=== PATIENT | female | born 1950 | race Caucasian/White ===

== ENCOUNTER 2020-08-08 07:31 | Outpatient (CLI) | payer MEDICARE, SELFPAY ==
[2020-08-08 08:04] LABS: Alanine Aminotransferase 29 U/L (4-35); Alkaline Phosphatase 63 U/L (38-126); Anion Gap 4 mmol/L (8-16); Aspartate Amino Transferase 26 U/L (14-36); Bilirubin,Total 0.4 mg/dL (0.2-1.3); Blood Urea Nitrogen 28 mg/dL (7-17); Calcium 8.9 mg/dL (8.4-10.2); Carbon Dioxide 32 mmol/L (22-30); Chloride 100 mmol/L (98-107); Cholesterol 226 mg/dL (0-200); Estimated Glomerular Filt Rate > 60; Glucose 151 mg/dL (65-105); HDL Direct 67 mg/dL; Potassium 3.9 mmol/L (3.4-5.0); Sodium 136 mmol/L (137-145); Triglycerides 109 mg/dL (<150)
[2020-08-08 08:14] LABS: Hemoglobin A1C 6.2 % (<5.7)
[2020-08-08 08:15] LABS: LDL Cholesterol Direct 132 mg/dL
[2020-08-08 08:24] LABS: Creatinine Urine 164.8 mg/dL
[2020-08-08 08:28] LABS: MALB Creatinine Ratio 19.2 mg/g (0-30); Microalbumin Urine Random 31.6 mg/L (0-16.7)
[2020-08-11 06:31] LABS: Vitamin D 1,25 (OH)2 Total 33 pg/mL (18-72); Vitamin D2 1,25 (OH)2 <8 pg/mL; Vitamin D3 1,25 (OH)2 33 pg/mL
== END 2020-08-08 07:32 | disposition home or self-care (01) ==
PROVIDERS: PCP Emergency Medicine; Visit Provider Emergency Medicine
DX: E11.9 Type 2 diabetes mellitus without complications (principal); E55.9 Vitamin D deficiency, unspecified; E78.5 Hyperlipidemia, unspecified
CPT/HCPCS: 36415; 80053; 80061; 82043; 82652; 83036; 84443

== ENCOUNTER 2020-08-09 07:47 | Outpatient (CLI) | payer MEDICARE, SELFPAY ==
[2020-08-09 08:31] LABS: Hemoglobin A1C 6.2 % (<5.7)
== END 2020-08-09 07:48 | disposition home or self-care (01) ==
PROVIDERS: PCP Emergency Medicine; Visit Provider Emergency Medicine
DX: R73.09 Other abnormal glucose (principal)
CPT/HCPCS: 36415; 83036

== ENCOUNTER 2022-03-24 08:44 | Outpatient (CLI) | payer MEDICARE, SELFPAY ==
[2022-03-24 09:53] LABS: Basophils Percent Auto 0.6 % (0.2-1.2); Eosinophils Absolute Auto 0.2 K/mm3 (0-0.3); Eosinophils Percent Auto 2.5 % (0-4.4); Hematocrit 38.5 % (37.0-47.0); Hemoglobin 12.5 g/dL (12.0-15.0); Immature Granulocyte Absolute 0.01 K/mm3 (0.00-0.031); Immature Granulocyte Percent A 0.2 % (0-0.5); Lymphocytes Absolute Auto 1.61 K/mm3 (0.9-3.2); Lymphocytes Percent Auto 25.6 % (18.3-44.2); Mean Corpuscular HGB Conc 32.5 g/dl (32-36); Mean Corpuscular Hemoglobin 26.8 pg (26-34); Mean Corpuscular Volume 82.4 fl (80-100); Mean Platelet Volume 10.4 fl (7.4-10.4); Monocytes Absolute Auto 0.8 K/mm3 (0.1-0.6); Monocytes Percent Auto 13.3 % (2.6-8.5); Neutrophils Absolute Auto 3.6 K/mm3 (1.3-6.7); Neutrophils Percent Auto 57.8 % (45.5-73.1); Platelet Count Result 248 k/mm3 (150-375); Red Blood Count 4.67 M/mm3 (4.2-5.4); Red Cell Distribution Width 14.4 % (11.5-14.5); White Blood Count 6.3 K/mm3 (4.5-10.0)
[2022-03-24 10:11] LABS: Hemoglobin A1C 13.9 % (<5.7)
[2022-03-24 10:37] LABS: Creatinine Urine 85.8 mg/dL
[2022-03-24 10:42] LABS: MALB Creatinine Ratio 35.5 mg/g (0-30); Microalbumin Urine Random 30.5 mg/L (0-16.7)
[2022-03-24 10:45] LABS: Alanine Aminotransferase 42 U/L (6-35); Albumin Level 3.8 g/dL (3.5-5.1); Alkaline Phosphatase 78 U/L (38-126); Anion Gap 8 mmol/L (8-16); Aspartate Amino Transferase 28 U/L (14-36); Bilirubin,Total 0.4 mg/dL (0.2-1.3); Blood Urea Nitrogen 23 mg/dL (7-17); Calcium 8.9 mg/dL (8.4-10.2); Carbon Dioxide 27 mmol/L (22-30); Chloride 100 mmol/L (98-107); Cholesterol 214 mg/dL (0-200); Estimated Glomerular Filt Rate > 60; Glucose 384 mg/dL (65-110); HDL Direct 47 mg/dL; Potassium 4.1 mmol/L (3.4-5.0); Sodium 135 mmol/L (137-145); Triglycerides 187 mg/dL (<150)
[2022-03-24 10:56] LABS: LDL Cholesterol Direct 127 mg/dL
[2022-03-24 11:52] LABS: Folic Acid 7.7 ng/mL (2.76->20)
[2022-03-27 12:50] LABS: Insulin Level Total 10.4 uIU/mL (<=19.6)
== END 2022-03-24 08:45 | disposition home or self-care (01) ==
PROVIDERS: PCP Emergency Medicine
DX: F33.1 Major depressive disorder, recurrent, moderate (principal); E78.5 Hyperlipidemia, unspecified; I10 Essential (primary) hypertension; E11.9 Type 2 diabetes mellitus without complications
CPT/HCPCS: 36415; 80053; 80061; 82043; 82607; 82746; 83036; 83525; 84443; 85025

== ENCOUNTER 2022-04-18 15:20 | Emergency (ER) | payer MEDICARE, SELFPAY ==
--- NOTE | ~2022-04-18 | XR_ITS ---
EXAMINATION: XR wrist LT min 3V DATE: 04/18/2022 16:17 INDICATION: Left wrist injury and pain. TECHNIQUE: 4 views of left wrist were obtained. COMPARISON: None. FINDINGS: Bone alignment is normal. No fracture. There is mild osteoarthritis of first carpometacarpa l joint and some of the metacarpophalangeal joints. IMPRESSION: 1. Mild polyarticular osteoarthritis. Reviewed, dictated and finalized at location A.
--- NOTE | ~2022-04-18 | CT_ITS ---
EXAMINATION: CT facial & cervical spine wo DATE: 04/18/2022 16:23 INDICATION: Fall. TECHNIQUE: Computed tomography (CT) of the maxillofacial region and cervical spine was performed with out intravenous contrast. Automated exposure control and iterative reconstruction technique were empl oyed. The dose-length product was 499.29 mGy-cm. COMPARISON: None FINDINGS: MAXILLOFACIAL CT: There is leftward deviation of the nasal septum. No fracture. There is mild mucosal thickening in lef t maxillary sinus. There are likely changes of ocular lens replacement surgeries. CERVICAL SPINE CT: There is 2 mm anterolisthesis of C7 on T1. There is 9 degrees levocurvature of cervical spine. Verteb ral body heights are normal. There is mildly decreased disc height at C3-C4, severely decreased disc height at C6-C7, and mildly decreased disc height at C7-T1. The following disc levels are specificall y discussed: C2-C3: There is no uncovertebral joint osteoarthritis. There is mild right facet joint osteoarthritis . There is no neural foraminal stenosis. There is no central canal stenosis. C3-C4: There is mild bilateral uncovertebral joint osteoarthritis. There is mild bilateral facet join t osteoarthritis. There is no neural foraminal stenosis. There is no central canal stenosis. C4-C5: There is mild bilateral uncovertebral joint osteoarthritis. There is mild bilateral facet join t osteoarthritis. There is no neural foraminal stenosis. There is no central canal stenosis. C5-C6: There is no uncovertebral joint osteoarthritis. There is no facet joint osteoarthritis. There is no neural foraminal stenosis. There is no central canal stenosis. C6-C7: There is severe bilateral uncovertebral joint osteoarthritis. There is mild bilateral facet rola int osteoarthritis. There is mild bilateral neural foraminal stenosis. There is mild central canal st enosis. C7-T1: There is no uncovertebral joint osteoarthritis. There is severe right and moderate left facet joint osteoarthritis. There is mild bilateral neural foraminal stenosis. There is no central canal st enosis. IMPRESSION: 1. No fracture. 2. Severe cervical spondylosis. Reviewed, dictated and finalized at location A.
--- NOTE | ~2022-04-18 | XR_ITS ---
EXAMINATION: XR shoulder LT min 2V DATE: 04/18/2022 16:17 INDICATION: Left shoulder pain. Fall. TECHNIQUE: 4 views of left shoulder were obtained. COMPARISON: None. FINDINGS: Bone alignment is normal. No fracture. There is mild osteoarthritis of glenohumeral joint a nd acromioclavicular joint. IMPRESSION: 1. Mild polyarticular osteoarthritis. Reviewed, dictated and finalized at location A.
--- NOTE | ~2022-04-18 | CT_ITS ---
EXAMINATION: CT brain wo con DATE: 04/18/2022 16:19 INDICATION: Fall. TECHNIQUE: Computed tomography (CT) of the head was performed without intravenous contrast. The mA wa s adjusted according to patient size. Iterative reconstruction technique was employed. The dose-lengt h product was 605.33 mGy-cm. COMPARISON: None FINDINGS: There are scattered areas of low attenuation in the cerebral white matter, which is within normal limits for the patient's age. There is no intracranial hemorrhage, acute infarction, or abnorm al intracranial mass lesion. The ventricles are normal in size. There are likely changes of ocular le ns replacement surgeries. There is mild mucosal thickening in the ethmoid sinuses. The mastoid air ce lls are normal. IMPRESSION: 1. Normal aging brain. Reviewed, dictated and finalized at location A. IMPRESSION: 1. Normal aging brain.
--- NOTE | ~2022-04-18 | XR_ITS ---
EXAMINATION: XR wrist RT min 3V DATE: 04/18/2022 16:18 INDICATION: Right wrist pain. Fall. TECHNIQUE: 4 views of right wrist were obtained. COMPARISON: None. FINDINGS: Bone alignment is normal. No fracture. Joint spaces are well maintained. IMPRESSION: 1. No fracture. Reviewed, dictated and finalized at location A. IMPRESSION: 1. No fracture.
--- NOTE | ~2022-04-18 | XR_ITS ---
EXAMINATION: XR hand LT min 3V DATE: 04/18/2022 16:16 INDICATION: Left hand pain. Fall. TECHNIQUE: 4 views of left hand were obtained. COMPARISON: None. FINDINGS: Bone alignment is normal. No fracture. There is mild osteoarthritis of first carpometacarpa l joint, second and fifth metacarpophalangeal joints, and some of the interphalangeal joints. There i s a periarticular calcification palmar to fifth distal interphalangeal joint. IMPRESSION: 1. Mild polyarticular osteoarthritis. Reviewed, dictated and finalized at location A.
[2022-04-18 15:25] VITALS: BP 138/72; PULSE 93; RESP 16; TEMP 36.1; O2SAT 99
--- NOTE | 2022-04-18 16:49 | ED.FALL ---
HPI - Fall General Chief Complaint: Fall Stated Complaint: FALL X1D ON BABY ASPIRIN HEADACHE Time Seen by Provider: 04/18/22 15:33 Source: RN notes reviewed History of Present Illness HPI Narrative: Patient presents emergency department from home for fall. Patient states yesterday she had tripped and fallen striking her forehead and face as well as landing with both of her wrist outstretched she states since that time she has a mild tenderness to her nose as well as her forehead states she did not have loss of consciousness that she is aware of but did feel dazed she also notes pain in her bilateral wrist and her left hand and her left shoulder she denies any vision changes any chest pain shortness of breath abdominal pain numbness or tingling in the extremities or any other symptoms of concern. States she did take ibuprofen at home for the symptoms Related Data Home Medications Medication Instructions Recorded Confirmed aspirin 81 mg chewable tablet 81 mg PO DAILY 05/23/20 05/10/21 Allergies Allergy/AdvReac Type Severity Reaction Status Date / Time [place] Allergy Severe DIFFICULTY Uncoded 04/16/22 09:27 BREATHING AEROSOLS Allergy Intermediate SHORTNESS Uncoded 04/16/22 09:27 OF BREATH Review of Systems Review of Systems: Gen.: Denies fevers or chills Eyes: Denies eye pain or visual change EN reports facial tenderness Respiratory: Denies shortness of breath or cough CV: Denies chest pain or palpitations GI: Denies abdominal pain nausea, emesis Musculoskeletal: See HPI Neuro: Denies numbness, tingling, weakness or focal weakness Skin: Denies rash Except as documented, all other systems reviewed and negative [facility] Past Medical History Medical History Arthritis Asthma Bilateral tinnitus Bleeding gums Bronchitis Cataracts, both eyes Chicken pox Diabetes 1.5, managed as type 2 Dizziness GERD with apnea Hay fever History of sinus problem HTN (hypertension) Incontinence Insomnia Migraine headache Morbid obesity Mumps Nervousness Pneumonia Surgical History Surgical History Hx of cataract removal with insertion of prosthetic lens (~2015) Family History Family History Mother Depression Hypertension Cerebrovascular accident, Onset Age: 64 Family history of diabetes mellitus in first degree relative Patient's mother is Father Family history of alcoholism Family history of emphysema, Onset Age: 49 Patient's father is Sibling Family history of lung cancer Patient's sister is Social History Social History Social History: Patient drinks 14 ounces of coffee daily. No other caffeine intake noted. Smoking status: Never smoker Alcohol intake: current Substance use: never Gender identity (if verbalized by the patient): Female Exam Narrative: APPEARANCE: Well appearing, no apparent distress, well-nourished. HEENT: normocephalic tender palpation over the anterior forehead as well as tenderness over the nasal bridge with mild abrasion and swelling nares are patent with no ecchymosis seen remainder the face is nontender to palpation EYES: PERRL NECK: Supple. No midline tenderness to palpation. Tender palpation of bilateral perigee muscles through C5-7 and RESPIRATORY: No respiratory distress. Clear to auscultation bilaterally CARDIOVASCULAR: Regular rate and rhythm without murmurs rubs or gallops. ABDOMINAL: Soft, nontender, nondistended, no rebound or guarding MUSCULOSKELETAl: Moves all extremities. No tenderness to palpation of bilateral lower extremities. No clubbing cyanosis or edema tender to palpation over the right wrist full flexion-extension without pain no tenderness of the right elbow or shoulde
== END 2022-04-18 17:17 | disposition home or self-care (01) ==
PROVIDERS: Emergency Provider Emergency Medicine; PCP Emergency Medicine
DX: S16.1XXA Strain of muscle, fascia and tendon at neck level, initial encounter (principal); S46.912A Strain of unspecified muscle, fascia and tendon at shoulder and upper arm level, left arm, initial encounter; S63.501A Unspecified sprain of right wrist, initial encounter; S60.222A Contusion of left hand, initial encounter; S00.83XA Contusion of other part of head, initial encounter; J45.909 Unspecified asthma, uncomplicated; E13.9 Other specified diabetes mellitus without complications; I10 Essential (primary) hypertension; K21.9 Gastro-esophageal reflux disease without esophagitis; M18.9 Osteoarthritis of first carpometacarpal joint, unspecified; M19.042 Primary osteoarthritis, left hand; M19.012 Primary osteoarthritis, left shoulder; E66.01 Morbid (severe) obesity due to excess calories; Z68.39 Body mass index [BMI] 39.0-39.9, adult; Z87.01 Personal history of pneumonia (recurrent); Z98.49 Cataract extraction status, unspecified eye; Z96.1 Presence of intraocular lens; Z79.82 Long term (current) use of aspirin; Z79.84 Long term (current) use of oral hypoglycemic drugs; M47.812 Spondylosis without myelopathy or radiculopathy, cervical region; W01.0XXA Fall on same level from slipping, tripping and stumbling without subsequent striking against object, initial encounter
CPT/HCPCS: 70450; 70486; 72125; 73030; 73110; 73130; 99284

== ENCOUNTER 2022-10-08 10:11 | Outpatient (CLI) | payer MEDICARE, SELFPAY ==
--- NOTE | ~2022-10-08 | MM_ITS ---
EXAMINATION: MM screening shade BI w yonathan HISTORY: Screening TECHNIQUE: Craniocaudal and mediolateral oblique 3-D tomosynthesis images were obtained and synthetic 2-D images were generated. CAD analysis was submitted and interpreted. COMPARISON: No prior mammogram is available for comparison at this institution. BREAST PARENCHYMAL COMPOSITION: There are scattered areas of fibroglandular density. FINDINGS: There is a mass in the lower outer quadrant of the right breast, middle third. There is a c luster of indeterminate calcifications in the upper outer quadrant of the left breast, middle third. IMPRESSION: 1. Right breast mass. Indeterminate clustered left breast calcifications. 2. Additional mammographic views and possible breast ultrasound are recommended. BI-RADS Category 0: Incomplete: Needs additional imaging evaluation. Reviewed, dictated and finalized at location A. IMPRESSION: 1. Right breast mass. Indeterminate clustered left breast calcifications. 2. Additional mammographic views and possible breast ultrasound are recommended . BI-RADS Category 0: Incomplete: Needs additional imaging evaluation.
--- NOTE | ~2022-10-08 | DEXA_ITS ---
Bone Density Report Name: BELKYS MOORE Age: 71 Sex: Female Ethnicity: White Date of : 1950 Indication: postmenopausal; screening for osteoporosis; height loss; asthma or emphysema; Referring Provider: VERONICA ANDERSEN Study: Bone densitometry was performed. Exam Date: October 08, 2022 Accession number: [id number] Bone Density: Region BMD T-score Z-score Classification AP Spine(L1-L4) 1.050 0.0 2.2 Normal Femoral Neck (Left) 0.722 -1.1 0.8 Osteopenia Total Hip (Left) 0.944 0.0 1.6 Normal Femoral Neck (Right) 0.757 -0.8 1.1 Normal Total Hip (Right) 1.027 0.7 2.3 Normal Total Hip Mean 0.985 0.4 2.0 Normal World Health Organization criteria for BMD impression classify patients as: Normal (T-score at or above -1.0), Osteopenia (T-score between -1.0 and -2.5), or Osteoporosis (T-score at or below -2.5). 10-year Fracture Risk(1): Major Osteoporotic Fracture 8.2% Hip Fracture 0.9% Reported Risk Factors: [place] (), Neck BMD=0.722, BMI=42.1 (1) FRAX(R) Version 3.08. Fracture probability calculated for an untreated patient. Fracture probability may be lower if the patient has received treatment. Clinical Information Provided by Patient: Has the following medical conditions: Asthma or Emphysema Patient maximum height was 66.75 Menopause Age: 48 No regular weight bearing exercise Drinks caffeinated beverages Onset of menses at age 12 Number of children 4 Impression: The patient has low bone mass, based on the Left Femoral Neck T-score. The patient has an estimated ten-year risk of hip fracture of 0.9% and an estimated ten-year risk of major fracture of 8.2%, based on the WHO FRAX algorithm. Discussion: BONE DENSITY IS LOW AT ONE OR MORE SKELETAL SITES. This patient's lowest T-score is low at one or more skeletal sites. It meets the World Health Organization's (WHO) criteria for ?low bone mass? (T-score between -1.0 and -2.5). The patient's 10-year risk of fracture as calculated by FRAX is less than the threshold where pharmacological therapy is recommended by the National Osteoporosis Foundation (NOF). However, all treatment decisions require clinical judgment and consideration of individual patient factors, including patient preferences, comorbidities, previous drug use, risk factors not captured in the FRAX model (e.g., frailty, falls, vitamin D deficiency, increased bone turnover, interval significant decline in bone density) and possible under or overestimation of fracture risk by FRAX. The patient should follow a healthful lifestyle (good nutrition with adequate calcium and vitamin D, and appropriate weight-bearing exercise). Follow-Up: Consider repeating this study in 2 to 3 years to reassess this patient's status, or sooner if there is some new clinical ind
== END 2022-10-08 10:12 | disposition home or self-care (01) ==
LOC: ANHIMG 10:14
PROVIDERS: PCP Emergency Medicine; Visit Provider Emergency Medicine
DX: Z12.31 Encounter for screening mammogram for malignant neoplasm of breast (principal); Z78.0 Asymptomatic menopausal state; R92.8 Other abnormal and inconclusive findings on diagnostic imaging of breast; M85.852 Other specified disorders of bone density and structure, left thigh
CPT/HCPCS: 77063; 77067; 77080

== ENCOUNTER 2022-10-09 08:48 | Outpatient (CLI) | payer MEDICARE, SELFPAY ==
[2022-10-09 09:26] LABS: Hemoglobin A1C 6.8 % (<5.7)
[2022-10-09 09:31] LABS: Alanine Aminotransferase 21 U/L (6-35); Albumin Level 4.2 g/dL (3.5-5.1); Alkaline Phosphatase 69 U/L (38-126); Anion Gap 8 mmol/L (8-16); Aspartate Amino Transferase 19 U/L (14-36); Bilirubin,Total 0.4 mg/dL (0.2-1.3); Blood Urea Nitrogen 23 mg/dL (7-17); Calcium 8.5 mg/dL (8.4-10.2); Carbon Dioxide 28 mmol/L (22-30); Chloride 102 mmol/L (98-107); Cholesterol 220 mg/dL (0-200); Estimated Glomerular Filt Rate > 60; Glucose 136 mg/dL (65-110); HDL Direct 59 mg/dL; Potassium 4.2 mmol/L (3.4-5.0); Sodium 138 mmol/L (137-145); Triglycerides 128 mg/dL (<150)
[2022-10-09 09:42] LABS: LDL Cholesterol Direct 121 mg/dL
[2022-10-09 10:14] LABS: Creatinine Urine 99.1 mg/dL
[2022-10-09 10:17] LABS: MALB Creatinine Ratio 19.7 mg/g (0-30); Microalbumin Urine Random 19.5 mg/L (0-16.7)
== END 2022-10-09 08:49 | disposition home or self-care (01) ==
PROVIDERS: PCP Emergency Medicine; Visit Provider Emergency Medicine
DX: E13.9 Other specified diabetes mellitus without complications (principal); I10 Essential (primary) hypertension; K21.9 Gastro-esophageal reflux disease without esophagitis; R06.81 Apnea, not elsewhere classified
CPT/HCPCS: 36415; 80053; 80061; 82043; 83036

== ENCOUNTER 2022-10-26 13:31 | Outpatient (CLI) | payer MEDICARE, SELFPAY ==
--- NOTE | ~2022-10-26 | MMUS_ITS ---
EXAMINATION: MM diagnostic shade BI w yonathan, US breast BI limited HISTORY: Right breast mass and indeterminate grouped left breast microcalcifications on 10/08/2022 scr eening mammogram examination TECHNIQUE: Additional 3-D tomosynthesis images of both breasts were performed and synthetic 2-D image s were generated. CAD analysis was submitted and interpreted. Magnification views of the left breast. High resolution right lower outer quadrant and left upper inner and upper outer quadrant breast ultr asound was performed. COMPARISON: 10/08/2022 bilateral screening mammogram FINDINGS: MAMMOGRAPHIC FINDINGS: An irregular up to approximately 7.8 x 13 mm mass is noted in the lower outer quadrant of the right b reast. Ultrasound correlation was obtained. There is approximately 1.7 x 3.7 x 2.5 cm area of calcifications in the upper outer left breast. The se are of variable size and shape, some in the central portion having a granular appearance while ashish e others. The benign secretory calcifications. Due to the presence of some indeterminate granular angelica rocalcifications in this cluster, stereotactic biopsy is recommended. ULTRASOUND: Right breast 8:00 6 cm from nipple: There is an irregular hypoechoic approximately 5.7 x 11 mm mass w ith suggestion of a tail-like projection mammographically and sonographically. There is some posterio r shadowing. No internal vascularity is noted. Due to the irregular margins and the posterior shadowi ng, ultrasound-guided biopsy is recommended. Ultrasound imaging of the upper half of the left breast including upper inner and upper inner quadran ts reveals no sonographic abnormality to correlate with the microcalcifications noted mammographicall y. IMPRESSION: 1. Right 8:00 6 cm from nipple irregular mass with posterior shadowing; ultrasound-guided biopsy is r ecommended 2. Indeterminate cluster of microcalcifications in the upper mid outer left breast; stereotactic biop sy is recommended BI-RADS category 4, suspicious findings. Dr. Rey telephoned the report and the ultrasound-guided biopsy recommendation of the right breast 8: 00 lesion and stereotactic biopsy recommendation of the left breast to Samantha, Cardroom Worker. Reviewed, dictated and finalized at location A. IMPRESSION: 1. Right 8:00 6 cm from nipple irregular mass with posterior shadowing; ultraso und-guided biopsy is recommended 2. Indeterminate cluster of microcalcifications in the upper mid outer left kalyan ast; stereotactic biopsy is recommended BI-RADS category 4, suspicious findings. Dr. Rey telephoned the report and the ultrasound-guided biopsy recommendation of the right breast 8:00 lesion and stereotactic biopsy recommendation of the l eft breast to Danielle Singh.
== END 2022-10-26 13:32 | disposition home or self-care (01) ==
LOC: ANHIMG 13:33
PROVIDERS: PCP Emergency Medicine; Visit Provider Emergency Medicine
DX: R92.8 Other abnormal and inconclusive findings on diagnostic imaging of breast (principal); R92.0 Mammographic microcalcification found on diagnostic imaging of breast
CPT/HCPCS: 76642; 77062; 77066; G0279

== ENCOUNTER 2022-11-20 09:56 | Outpatient (CLI) | payer MEDICARE, SELFPAY ==
--- NOTE | ~2022-11-20 | MM_ITS ---
EXAMINATION: MM stereotactic bx LT, MM post biopsy diagnostic LT, MM stereotactic specimen LT DATE: 11/20/2022 11:34 (accession [id number]), 11/20/2022 11:35 (accession [id number]), 11/20 11:34 (accession [id number]) INDICATION: Indeterminate calcifications of the left breast. Stereotactic core biopsy is requested ev aluate for malignancy. TECHNIQUE AND FINDINGS: The risks and potential benefits of the procedure were discussed with the patient including bleeding and infection. A time out was performed to verify the patient's name, date of and site of proce dure to be performed. The patient was placed in the prone position with the left breast in lateral me dial compression, and the area of interest was localized and targeted utilizing digital imaging with stereotaxis. After sterile preparation of the skin, 1% lidocaine was utilized for local anesthesia at the skin pun cture site and 1% lidocaine with epinephrine was utilized for deeper local anesthesia about the biops y site. A 9G DeciZium vacuum assisted biopsy needle was advanced to the level of the calcification of in terest from a lateral approach utilizing stereotactic guidance and a total of eight tissue core biops ies were obtained. A specimen radiograph demonstrates that the calcifications of interest are included within the tissue cores. A tissue marker clip was then placed at the biopsy site. The needle was removed and hemosta sis was achieved. A sterile bandage in place that were applied. The patient tolerated procedure well and there was no evidence of immediate complication. The patient was given verbal instructions to ret urn to the Emergency Department in the event of severe breast pain or rapid breast enlargement. Tissu e cores were submitted to surgical pathology for histologic analysis. A 2-view left unilateral digital mammogram was obtained post procedure and this demonstrates that the tissue marker clip is in expected position. IMPRESSION: 1. Successful stereotactic biopsy of calcifications in the outer left breast, followed by tissue yanira er clip placement. Reviewed, dictated and finalized at location A. IMPRESSION: 1. Successful stereotactic biopsy of calcifications in the outer left breast, f ollowed by tissue marker clip placement. IMPRESSION: 1. Successful stereotactic biopsy of calcifications in the outer left breast, f ollowed by tissue marker clip placement.
--- NOTE | ~2022-11-20 | MMUS_ITS ---
EXAMINATION: US breast biopsy RT w image, MM post biopsy invasive RT DATE: 11/20/2022 13:36 (accession [id number]), 11/20/2022 13:04 (accession [id number]) INDICATION: Indeterminate mass of the lower outer right breast. Ultrasound-guided core biopsy is requ ested to evaluate for malignancy. TECHNIQUE AND FINDINGS: The risks and potential benefits of the procedure were discussed with the patient including bleeding and infection. A time out was performed. The skin of the right breast was prepared and draped in usua l sterile fashion. 1% lidocaine was used for superficial anesthesia. 1% lidocaine with epinephrine wa s used for deep anesthesia. A vacuum-assisted biopsy needle was advanced through to the outer edge of the region of interest from an inferomedial approach utilizing sonographic guidance. A total of four tissue core samples were ob tained through the lesion. A tissue marker clip was then placed at the biopsy site. Hemostasis was ac hieved. A sterile bandage was applied. The patient tolerated procedure well and there was no evidence of immediate complication. The patient was given verbal instructions to return to the Emergency Department in the event of severe breast pa in or rapid breast enlargement. A two view right breast mammogram was obtained to document tissue mar ker clip placement. IMPRESSION: 1. Successful ultrasound-guided vacuum-assisted biopsy of right breast mass with tissue marker placem ent. Reviewed, dictated and finalized at location A. IMPRESSION: 1. Successful ultrasound-guided vacuum-assisted biopsy of right breast mass wit h tissue marker placement.
== END 2022-11-20 09:57 | disposition home or self-care (01) ==
PROVIDERS: PCP Emergency Medicine; Visit Provider Emergency Medicine
DX: R92.8 Other abnormal and inconclusive findings on diagnostic imaging of breast (principal)
CPT/HCPCS: 19081; 19083; 77065; 88305; A4648

== ENCOUNTER 2023-05-18 09:55 | Outpatient (CLI) | payer MEDICARE, SELFPAY ==
[2023-05-18 10:42] LABS: Alanine Aminotransferase 22 U/L (6-35); Albumin Level 4.2 g/dL (3.5-5.1); Alkaline Phosphatase 76 U/L (38-126); Anion Gap 6 mmol/L (8-16); Aspartate Amino Transferase 20 U/L (14-36); Bilirubin,Total 0.5 mg/dL (0.2-1.3); Blood Urea Nitrogen 19 mg/dL (7-17); Calcium 8.9 mg/dL (8.4-10.2); Carbon Dioxide 27 mmol/L (22-30); Chloride 103 mmol/L (98-107); Cholesterol 227 mg/dL (0-200); Estimated Glomerular Filt Rate > 60; Glucose 149 mg/dL (65-110); HDL Direct 65 mg/dL; Potassium 4.1 mmol/L (3.4-5.0); Sodium 136 mmol/L (137-145); Triglycerides 128 mg/dL (<150)
[2023-05-18 10:53] LABS: LDL Cholesterol Direct 122 mg/dL
[2023-05-18 11:12] LABS: Hemoglobin A1C 6.6 % (<5.7)
[2023-05-23 11:43] LABS: Vitamin D 1,25 (OH)2 Total 38 pg/mL (18-72); Vitamin D2 1,25 (OH)2 <8 pg/mL; Vitamin D3 1,25 (OH)2 38 pg/mL
== END 2023-05-18 09:56 | disposition home or self-care (01) ==
LOC: ANHLAB 09:57
PROVIDERS: PCP Emergency Medicine; Visit Provider Emergency Medicine
DX: E13.9 Other specified diabetes mellitus without complications (principal); E55.9 Vitamin D deficiency, unspecified
CPT/HCPCS: 36415; 80053; 80061; 82652; 83036

== ENCOUNTER 2023-06-16 14:24 | Emergency (ER) | payer MEDICARE, SELFPAY ==
--- NOTE | ~2023-06-16 | XR_ITS ---
EXAMINATION: XR chest 2V 06/16/2023 19:48 INDICATION: Chest congestion. Right-sided coarse breath sounds PROCEDURE: 2 view chest COMPARISON: 12/03/2005 FINDINGS: The lungs are clear. The cardiomediastinal silhouette is within normal limits. There are no pleural effusions. There is no pneumothorax suspected. IMPRESSION: 1: NO ACUTE CARDIOPULMONARY DISEASE. Reviewed, dictated and finalized at location A. MENDER
[2023-06-16 14:51] VITALS: BP 158/93; PULSE 117; RESP 18; TEMP 36.8; O2SAT 95
[2023-06-16 15:08] LABS: Basophils Percent Auto 0.5 % (0.2-1.2); Eosinophils Absolute Auto 0.1 K/mm3 (0-0.3); Hematocrit 39.1 % (37.0-47.0); Hemoglobin 12.1 g/dL (12.0-15.0); Immature Granulocyte Absolute 0.04 K/mm3 (0.00-0.031); Immature Granulocyte Percent A 0.5 % (0-0.5); Lymphocytes Absolute Auto 0.35 K/mm3 (0.9-3.2); Lymphocytes Percent Auto 4.3 % (18.3-44.2); Mean Corpuscular HGB Conc 30.9 g/dl (32-36); Mean Corpuscular Hemoglobin 24.6 pg (26-34); Mean Corpuscular Volume 79.5 fl (80-100); Mean Platelet Volume 9.4 fl (7.4-10.4); Monocytes Absolute Auto 0.9 K/mm3 (0.1-0.6); Monocytes Percent Auto 10.8 % (2.6-8.5); Neutrophils Absolute Auto 6.8 K/mm3 (1.3-6.7); Neutrophils Percent Auto 82.9 % (45.5-73.1); Platelet Count Result 265 k/mm3 (150-375); Red Blood Count 4.92 M/mm3 (4.2-5.4); White Blood Count 8.2 K/mm3 (4.5-10.0)
[2023-06-16 15:26] LABS: Alanine Aminotransferase 23 U/L (6-35); Albumin Level 4.3 g/dL (3.5-5.1); Alkaline Phosphatase 93 U/L (38-126); Anion Gap 10 mmol/L (8-16); Aspartate Amino Transferase 20 U/L (14-36); Bilirubin,Total 0.5 mg/dL (0.2-1.3); Blood Urea Nitrogen 16 mg/dL (7-17); Calcium 8.8 mg/dL (8.4-10.2); Carbon Dioxide 23 mmol/L (22-30); Chloride 101 mmol/L (98-107); Estimated CRCL calculation 107 ml/min; Estimated Glomerular Filt Rate > 60; Glucose 177 mg/dL (65-110); Lipase 51 U/L (23-300); Sodium 134 mmol/L (137-145)
[2023-06-16 15:44] LABS: Influenza A QL RT-PCR Positive (Negative); Influenza B QL RT-PCR Negative (Negative); SARS-CoV-2 RNA PCR Negative (Negative)
--- NOTE | 2023-06-16 19:51 | ED.NAVMDI ---
HPI - Nausea/Vomiting/Diarrhea General Chief complaint: Nausea/Vomiting/Diarrhea Stated complaint: nausea/congestion Time Seen by Provider: 06/16/23 19:15 Source: patient and family () Limitations: no limitations History of Present Illness HPI Narrative: This is a 72 yo who presents with nasal and chest congestion for 2-3 days, nausea that started today, and loose stools. She has not vomited but has dry heaved. She also has a sore throat and a cough productive of yellow/white/clear sputum. She does not know if she has been febrile but has myalgias. No underlying cardiac or respiratory conditions. She took Tylenol yesterday and this morning. She has a history of sinus issues and occasionally this disseminates into a chest cold. Her was sick with simliar symptoms over the past few days (congestions, nasal drip, sore throat, cough, fever). Related Data Home Medications Medication Instructions Recorded Confirmed aspirin 81 mg chewable tablet 81 mg PO DAILY 05/23/20 05/22/23 loratadine 10 mg tablet (Claritin) 10 mg PO DAILY 10/15/22 05/22/23 vitamin E (dl, acetate) 90 mg (200 90 mg PO DAILY 10/15/22 05/22/23 unit) capsule Allergies Allergy/AdvReac Type Severity Reaction Status Date / Time cucumber Allergy Intermediate Difficulty Verified 05/22/23 09:30 Breathing AEROSOLS Allergy Intermediate SHORTNESS Uncoded 05/22/23 09:30 OF BREATH PMFSH Past Medical History Medical History Arthritis Asthma Bilateral tinnitus Bleeding gums Bronchitis Cataracts, both eyes Chicken pox Diabetes 1.5, managed as type 2 Dizziness GERD with apnea Hay fever History of sinus problem HTN (hypertension) Incontinence Insomnia Migraine headache Morbid obesity Mumps Nervousness Pneumonia Surgical History Surgical History Hx of cataract removal with insertion of prosthetic lens (~2015) Family History Family History Mother Depression Hypertension Cerebrovascular accident, Onset Age: 64 Family history of diabetes mellitus in first degree relative Patient's mother is Father Family history of alcoholism Family history of emphysema, Onset Age: 49 Patient's father is Sibling Family history of lung cancer Patient's sister is Social History Social History Social History: Patient drinks 14 ounces of coffee daily. No other caffeine intake noted. Smoking status: Never smoker Alcohol intake: current Substance use: never Lack of Transportation: No Lack of Food: Never True Current Housing: I Have Housing Concerned About Future Housing: No Difficulty Paying Gas/Electric Bills: YES Difficulty Paying for Meds: YES Currently Unemployed: No Education: Bachelor's Degree Difficulty w/ Childcare or Family Care: No Gender identity (if verbalized by the patient): Female Exam Narrative: GENERAL: well-nourished, and in no acute distress although appears acutely ill and uncomfortable. HEAD: Normocephalic, atraumatic. EYES: No photophobia ENT: Nasal congestion; no epistaxis. Mild TTP of frontal sinuses. NECK: Supple. No meningismus. CHEST: No respiratory distress but coarse breath sounds bilaterally, possibly upper airway noises transmitted. HEART: Tachycardic rate and rhythm. ABDOMEN: Obese. Soft, nondistended SKIN: Warm, dry, no rash. NEURO: No focal deficits. Alert and oriented x3. PSYCH: Normal mood and affect. Course Vital Signs Vital signs: Vital Signs Temperature 98.2 F 06/16/23 14:51 Pulse Rate 117 H 06/16/23 14:51 Respiratory Rate 18 06/16/23 14:51 Blood Pressure 158/93 H 06/16/23 14:51 Pulse Oximetry 95 06/16/23 14:51 Oxygen Delivery Room Air 06/16/23 14:51
[2023-06-16 19:53] VITALS: BP 172/86; PULSE 103; RESP 18; O2SAT 98
[2023-06-16] MEDS: OSELTAMIVIR PHOSPHATE 75 MG CAPSULE PO (21:37)
[2023-06-16] MEDS: IBUPROFEN 600 MG TABLET PO (21:37)
[2023-06-16] MEDS: ONDANSETRON HCL ODT 4 MG TABLET PO (21:46)
[2023-06-16 21:48] VITALS: BP 157/84; PULSE 100; RESP 18; O2SAT 98
== END 2023-06-16 21:56 | disposition home or self-care (01) ==
LOC: ANHED 20:07
PROVIDERS: Emergency Provider Student in an Organized Health Care Education/Training Program; PCP Emergency Medicine
DX: J10.1 Influenza due to other identified influenza virus with other respiratory manifestations (principal); Z20.822 Contact with and (suspected) exposure to COVID-19; J45.909 Unspecified asthma, uncomplicated; I10 Essential (primary) hypertension; E13.9 Other specified diabetes mellitus without complications; E66.01 Morbid (severe) obesity due to excess calories; Z68.41 Body mass index [BMI] 40.0-44.9, adult; K21.9 Gastro-esophageal reflux disease without esophagitis; M19.90 Unspecified osteoarthritis, unspecified site; Z87.01 Personal history of pneumonia (recurrent); Z98.49 Cataract extraction status, unspecified eye; Z96.1 Presence of intraocular lens; Z79.84 Long term (current) use of oral hypoglycemic drugs; Z79.82 Long term (current) use of aspirin
CPT/HCPCS: 36415; 71046; 80053; 83690; 85025; 87636; 99283; A9270

== ENCOUNTER 2023-12-23 09:09 | Outpatient (CLI) | payer MEDICARE, SELFPAY ==
[2023-12-23 09:55] LABS: Alanine Aminotransferase 26 U/L (6-35); Albumin Level 4.1 g/dL (3.5-5.1); Alkaline Phosphatase 75 U/L (38-126); Anion Gap 5 mmol/L (4-12); Aspartate Amino Transferase 20 U/L (14-36); Bilirubin,Total 0.4 mg/dL (0.2-1.3); Blood Urea Nitrogen 18 mg/dL (7-17); Calcium 8.9 mg/dL (8.4-10.2); Carbon Dioxide 27 mmol/L (22-30); Chloride 108 mmol/L (98-107); Cholesterol 197 mg/dL (0-200); Estimated Glomerular Filt Rate > 60; Glucose 158 mg/dL (65-110); HDL Direct 62 mg/dL; Potassium 4.1 mmol/L (3.4-5.0); Sodium 140 mmol/L (137-145); Triglycerides 125 mg/dL (<150)
[2023-12-23 10:06] LABS: LDL Cholesterol Direct 120 mg/dL
[2023-12-23 10:10] LABS: Hemoglobin A1C 6.7 % (<5.7)
== END 2023-12-23 09:10 | disposition home or self-care (01) ==
PROVIDERS: PCP Emergency Medicine; Visit Provider Emergency Medicine
DX: E78.5 Hyperlipidemia, unspecified (principal); E13.9 Other specified diabetes mellitus without complications; E55.9 Vitamin D deficiency, unspecified
CPT/HCPCS: 36415; 80053; 80061; 82306; 83036

== ENCOUNTER 2024-02-07 21:20 | Emergency (ER) | payer MEDICARE, SELFPAY ==
[2024-02-07 21:23] VITALS: BP 157/88; PULSE 104; RESP 17; TEMP 36.9; O2SAT 99
[2024-02-07 23:57] VITALS: BP 166/78; PULSE 97; RESP 20; O2SAT 97
[2024-02-08 00:12] LABS: Appearance Urine Cloudy (Clear); Bacteria Urine 4+ /hpf; Bilirubin Urine Negative (Negative); Blood Urine Negative (Negative); Color Urine Yellow (Yellow); Glucose Urine UA Negative (Negative); Ketones Urine Trace mg/dL (Negative); Leukocyte Esterase Ur 2+ LEU/UL (Negative); Nitrate Urine Positive (Negative); Non Pathogenic Casts 0-2; Protein Urine Trace mg/dL (Negative); Specific Grav Ur 1.026 (1.001-1.035); Squamous Epithelial Cell Urine Few /hpf (Few); WBC Urine 51-100 /hpf (0-3); pH Urine 5.5 (5.0-9.0)
[2024-02-08 00:23] LABS: Add Urine Microscopic? YES
--- NOTE | 2024-02-08 00:54 | ED.FEMALEGU ---
HPI - Female Genitourinary General Chief complaint: Urogenital-Female Stated complaint: blood in urine Time Seen by Provider: 02/08/24 00:39 Source: patient Mode of arrival: ambulatory Limitations: no limitations History of Present Illness HPI Narrative: 73 yo presents with hematuria. She had it earlier and was treated for a UTI by her PCP, Dr Cerda, 2 weeks ago; unknown antibiotic. It then resolve but now recurred. Associated with urinary frequency and painful urination but no burning when she pees. She has been incontinent of urine. Also having back pain and mild nausea. Describes a heaviness in her low abdomen, like a menstrual cycle. Feels fatigued and has a headache. Left flank pain. No history of kidney stone. States the pain is not sharp. Related Data Home Medications Medication Instructions Recorded Confirmed aspirin 81 mg chewable tablet 81 mg PO DAILY 05/23/20 05/22/23 loratadine 10 mg tablet (Claritin) 10 mg PO DAILY 10/15/22 05/22/23 vitamin E (dl, acetate) 90 mg (200 90 mg PO DAILY 10/15/22 05/22/23 unit) capsule Allergies Allergy/AdvReac Type Severity Reaction Status Date / Time cucumber Allergy Intermediate Difficulty Verified 01/21/24 11:19 Breathing AEROSOLS Allergy Intermediate SHORTNESS Uncoded 01/21/24 11:19 OF BREATH PMFSH Past Medical History Medical History (Updated 02/11/24 @ 00:54 by Ariella Siegel MD) Arthritis Asthma Bilateral tinnitus Bleeding gums Bronchitis Cataracts, both eyes Chicken pox Diabetes 1.5, managed as type 2 Dizziness GERD with apnea Hay fever History of sinus problem HTN (hypertension) Incontinence Insomnia Migraine headache Morbid obesity Mumps Nervousness Pneumonia Postmenopausal Suicidal thoughts UTI (urinary tract infection) Mid January 2024 Surgical History Surgical History Hx of cataract removal with insertion of prosthetic lens (~2015) Family History Family History Mother Depression Hypertension Cerebrovascular accident, Onset Age: 64 Family history of diabetes mellitus in first degree relative Patient's mother is Father Family history of alcoholism Family history of emphysema, Onset Age: 49 Patient's father is Sibling Family history of lung cancer Patient's sister is Social History Social History Social History: Patient drinks 14 ounces of coffee daily. No other caffeine intake noted. Smoking status: Never smoker Alcohol intake: current Substance use: never Do You Feel Safe in your Home?: Yes Lack of Transportation: No Lack of Food: Never True Current Housing: I Have Housing Concerned About Future Housing: No Difficulty Paying Gas/Electric Bills: YES Difficulty Paying for Meds: No Currently Unemployed: No Education: Bachelor's Degree Difficulty w/ Childcare or Family Care: No Gender identity (if verbalized by the patient): Female Exam Narrative: GENERAL: Well-appearing, well-nourished, and in no acute distress. HEAD: Normocephalic, atraumatic. EYES: Non injected, non icteric ENT: Nares clear, no rhinorrhea or epistaxis. NECK: Supple. CHEST: Speaking in full sentences. No respiratory distress. HEART: Regular rate and rhythm. . : No CVA tenderness bilaterally. ABDOMEN: Soft, nondistended. Mild suprapubic tenderness to palpation without rigidity/guarding. Not peritoneal. EXTREMITIES: Normal range of motion. No edema. SKIN: Warm, dry, no rash. NEURO: No focal deficits. Alert and oriented x3. PSYCH: Normal mood and affect. Course Vital Signs Vital signs: Vital Signs Temperature 98.5 F 02/07/24 21:23 Pulse Rate 104 H 02/07/24 21:23 Respiratory Rate 17 02/07/24 21:23 Blood Pressure 157/88 H 02/07/24 21:23 Pulse
[2024-02-08] MEDS: SODIUM CHLORIDE 0.9% IV 1,000 ML 999 ML IV CONT (01:25)
[2024-02-08 02:12] VITALS: BP 134/68; PULSE 66; RESP 15; O2SAT 100
== END 2024-02-08 02:13 | disposition home or self-care (01) ==
PROVIDERS: Student in an Organized Health Care Education/Training Program; Emergency Provider Student in an Organized Health Care Education/Training Program; PCP Emergency Medicine
DX: N12 Tubulo-interstitial nephritis, not specified as acute or chronic (principal); J45.909 Unspecified asthma, uncomplicated; E13.9 Other specified diabetes mellitus without complications; I10 Essential (primary) hypertension; K21.9 Gastro-esophageal reflux disease without esophagitis; E66.01 Morbid (severe) obesity due to excess calories; Z68.41 Body mass index [BMI] 40.0-44.9, adult
CPT/HCPCS: 81001; 87077; 87086; 87088; 87186; 96365; 99284; J0696; J7030

== ENCOUNTER 2024-02-18 11:46 | Emergency (ER) | payer MEDICARE, SELFPAY ==
--- NOTE | ~2024-02-18 | CT_ITS ---
EXAMINATION: CT abdomen pelvis w con DATE: 02/18/2024 16:05 INDICATION: abdominal pain TECHNIQUE: Computed tomography (CT) of the abdomen and pelvis was performed with 100 mL Omnipaque-350 intravenous contrast. Automated exposure control and iterative reconstruction technique were employe d. The dose-length product was 1373.93 mGy-cm. COMPARISON: None. FINDINGS: Lower thorax: Unremarkable Liver: Enlarged. Diffuse fatty infiltration. Biliary/Gallbladder: Gallbladder is normal. No bile duct dilation. Pancreas: No mass or duct dilation. Spleen: Normal. Adrenals:No mass. Kidneys: Bilateral nonobstructive calcifications measuring up to 5 mm in the left midpole. Subcentime ter bilateral hypodensities, too small to characterize but most likely represent cysts. Two subcentim eter hyperdensities (>70 HU) in the left kidney likely representing proteinaceous or hemorrhagic cyst s GI tract: Small hiatal hernia. No small or large bowel dilation. Normal appendix. Diverticulosis with out diverticulitis. Mesentery/Peritoneum: No ascites, mass, or free air. Retroperitoneum: No mass. Pelvis: The urinary bladder is decompressed. Multiple uterine fibroids. Normal bilateral ovaries. Soft Tissues: Soft tissues and body wall unremarkable. Bones: No acute osseous finding. IMPRESSION: Hepatomegaly with steatosis. Uterine fibroids. Otherwise unremarkable CT abdomen and pelvis findings. Decompressed urinary bladder limits evaluation. Correlate with urinalysis. No CT evidence of obstruct anjali uropathy. Reviewed, dictated and finalized at location K. IMPRESSION: Hepatomegaly with steatosis. Uterine fibroids. Otherwise unremarkable CT abdomen and pelvis findings. Decompressed urinary bladder limits evaluation. Correlate with urinalysis. No C T evidence of obstructive uropathy.
[2024-02-18 11:50] VITALS: BP 136/64; PULSE 91; RESP 16; TEMP 36.8; O2SAT 98
[2024-02-18 12:39] LABS: Add Urine Microscopic? YES; Appearance Urine Clear (Clear); Bacteria Urine None Seen /hpf; Bilirubin Urine Negative (Negative); Blood Urine Trace (Negative); Color Urine Yellow (Yellow); Glucose Urine UA Negative (Negative); Ketones Urine Negative (Negative); Leukocyte Esterase Ur 1+ LEU/UL (Negative); Nitrate Urine Negative (Negative); Non Pathogenic Casts 0-2; Protein Urine Negative (Negative); Specific Grav Ur 1.016 (1.001-1.035); Squamous Epithelial Cell Urine None Seen /hpf (Few); pH Urine 5.5 (5.0-9.0)
[2024-02-18 13:14] VITALS: BP 154/76; PULSE 85; RESP 17; O2SAT 97
[2024-02-18 14:30] VITALS: BP 151/91; PULSE 85; RESP 23; O2SAT 98
[2024-02-18 14:32] LABS: Basophils Absolute Auto 0.1 K/mm3 (0.0-0.1); Basophils Percent Auto 0.7 % (0.2-1.2); Eosinophils Absolute Auto 0.2 K/mm3 (0-0.3); Hematocrit 35.8 % (37.0-47.0); Hemoglobin 11.1 g/dL (12.0-15.0); Immature Granulocyte Absolute 0.02 K/mm3 (0.00-0.031); Immature Granulocyte Percent A 0.3 % (0-0.5); Lymphocytes Absolute Auto 1.73 K/mm3 (0.9-3.2); Lymphocytes Percent Auto 24.3 % (18.3-44.2); Mean Corpuscular Hemoglobin 24.6 pg (26-34); Mean Corpuscular Volume 79.4 fl (80-100); Mean Platelet Volume 9.5 fl (7.4-10.4); Monocytes Absolute Auto 0.8 K/mm3 (0.1-0.6); Neutrophils Absolute Auto 4.3 K/mm3 (1.3-6.7); Neutrophils Percent Auto 60.7 % (45.5-73.1); Platelet Count Result 280 k/mm3 (150-375); Red Blood Count 4.51 M/mm3 (4.2-5.4); Red Cell Distribution Width 16.7 % (11.5-14.5); White Blood Count 7.1 K/mm3 (4.5-10.0)
[2024-02-18 14:45] LABS: Lactic Acid Reflex 2.4 mmol/L (0.7-2.0)
[2024-02-18 14:46] LABS: Alanine Aminotransferase 22 U/L (6-35); Albumin Level 3.9 g/dL (3.5-5.1); Alkaline Phosphatase 73 U/L (38-126); Anion Gap 10 mmol/L (4-12); Aspartate Amino Transferase 23 U/L (14-36); Bilirubin,Total 0.2 mg/dL (0.2-1.3); Blood Urea Nitrogen 22 mg/dL (7-17); Calcium 8.5 mg/dL (8.4-10.2); Carbon Dioxide 23 mmol/L (22-30); Chloride 101 mmol/L (98-107); Estimated CRCL calculation 104 ml/min; Estimated Glomerular Filt Rate > 60; Glucose 177 mg/dL (65-110); Potassium 4.3 mmol/L (3.4-5.0); Sodium 134 mmol/L (137-145)
--- NOTE | 2024-02-18 14:47 | ED.GENADULT ---
HPI - General Adult General Chief complaint: Urogenital-Female Stated complaint: UTI not improving Time Seen by Provider: 02/18/24 13:35 History of Present Illness HPI narrative: Ysabel Bell is a 73 y/o female who presents today with reports of this ongoing UTI that she has had for about 22 days. She states she had some hematuria she was started on a 10 day course of antibiotics unclear which antibiotic, the next day had hematuria and another day was started on another 10 day regimen of cefpodoxime. She states that she missed her last day but today started to have hematuria again, she also feels urgency cramping suprapubic pain / and she feels that she may not be completely empting her bladder Denies any known fevers / no nausea/vomiting Related Data Home Medications Medication Instructions Recorded Confirmed aspirin 81 mg chewable tablet 81 mg PO DAILY 05/23/20 05/22/23 loratadine 10 mg tablet (Claritin) 10 mg PO DAILY 10/15/22 05/22/23 vitamin E (dl, acetate) 90 mg (200 90 mg PO DAILY 10/15/22 05/22/23 unit) capsule Allergies Allergy/AdvReac Type Severity Reaction Status Date / Time cucumber Allergy Intermediate Difficulty Verified 01/21/24 11:19 Breathing AEROSOLS Allergy Intermediate SHORTNESS Uncoded 01/21/24 11:19 OF BREATH Review of Systems Review of Systems: All systems reviewed & are unremarkable except as noted in HPI and below PMFSH Past Medical History Medical History Arthritis Asthma Bilateral tinnitus Bleeding gums Bronchitis Cataracts, both eyes Chicken pox Diabetes 1.5, managed as type 2 Dizziness GERD with apnea Hay fever History of sinus problem HTN (hypertension) Incontinence Insomnia Migraine headache Morbid obesity Mumps Nervousness Pneumonia Postmenopausal Suicidal thoughts UTI (urinary tract infection) Mid January 2024 Surgical History Surgical History Hx of cataract removal with insertion of prosthetic lens (~2015) Family History Family History Mother Depression Hypertension Cerebrovascular accident, Onset Age: 64 Family history of diabetes mellitus in first degree relative Patient's mother is Father Family history of alcoholism Family history of emphysema, Onset Age: 49 Patient's father is Sibling Family history of lung cancer Patient's sister is Social History Social History Social History: Patient drinks 14 ounces of coffee daily. No other caffeine intake noted. Smoking status: Never smoker Alcohol intake: current Substance use: never Do You Feel Safe in your Home?: Yes Lack of Transportation: No Lack of Food: Never True Current Housing: I Have Housing Concerned About Future Housing: No Difficulty Paying Gas/Electric Bills: YES Difficulty Paying for Meds: No Currently Unemployed: No Education: Bachelor's Degree Difficulty w/ Childcare or Family Care: No Gender identity (if verbalized by the patient): Female Exam Narrative: GENERAL: well-nourished, and in no acute distress. HEAD: Normocephalic, atraumatic. EYES: PERRLA and EOMI. ENT: Nares clear, no rhinorrhea or epistaxis. Mucous membranes moist. Oropharynx without tonsillar hypertrophy exudate or other lesions. NECK: Supple. No adenopathy or masses. No carotid bruits or JVD CHEST: Clear to auscultation. No respiratory distress. No wheezes rales or rhonchi HEART: Regular rate and rhythm. No murmur heard. Normal peripheral pulses. ABDOMEN: Soft, active bowel sounds, abdomen seems distended + pain with palpation to the lower abdomen /pelvis EXTREMITIES: Normal range of motion. No edema. SKIN: Warm, dry, no rash. NEURO: No focal deficits. Alert and oriented x3. PSYCH: Normal mood and
[2024-02-18] MEDS: KETOROLAC 30 MG/ML VIAL (*BKC) IV PUSH (14:53)
[2024-02-18] MEDS: SODIUM CHLORIDE 0.9% IV 500 ML 999 ML IV CONT (14:53)
[2024-02-18] MEDS: ONDANSETRON INJ 4 MG/2 ML VIAL IV PUSH (14:53)
[2024-02-18 17:30] LABS: Reflex Lactic Acid Yes or No Add Lactic
[2024-02-18] MEDS: NITROFURANTOIN MONOHYD MACROCR 100 MG CAP PO (17:44)
[2024-02-18 18:33] VITALS: BP 147/82; PULSE 78; RESP 19; TEMP 37.1; O2SAT 100
== END 2024-02-18 18:02 | disposition home or self-care (01) ==
PROVIDERS: Emergency Medicine; Emergency Provider Nurse Practitioner Family; PCP Emergency Medicine
DX: N30.01 Acute cystitis with hematuria (principal); E13.9 Other specified diabetes mellitus without complications; I10 Essential (primary) hypertension
CPT/HCPCS: 36415; 74177; 80053; 81001; 83605; 85025; 87086; 96361; 96374; 96375; 99284; A9270; J1885; J2405; J7040; Q9967

== ENCOUNTER 2024-03-12 09:11 | Outpatient (CLI) | payer MEDICARE, SELFPAY ==
--- NOTE | ~2024-03-12 | XR_ITS ---
Supine and upright views of the abdomen Clinical history: Renal stone Findings: Bowel gas pattern is nonspecific. No evidence for obstruction or free air. Small bilateral renal stones noted. Osseous structures are intact. Impression: Small bilateral renal stones. Reviewed, dictated and finalized at location M. Impression: Small bilateral renal stones.
== END 2024-03-12 09:12 | disposition home or self-care (01) ==
LOC: ANHIMG 09:14
PROVIDERS: PCP Emergency Medicine; Visit Provider Urology
DX: N20.0 Calculus of kidney (principal)
CPT/HCPCS: 74018

== ENCOUNTER 2024-07-06 11:27 | Outpatient (CLI) | payer MEDICARE, SELFPAY ==
[2024-07-06 12:18] LABS: Alanine Aminotransferase 27 U/L (6-35); Alkaline Phosphatase 77 U/L (38-126); Anion Gap 3 mmol/L (4-12); Aspartate Amino Transferase 23 U/L (14-36); Bilirubin,Total 0.3 mg/dL (0.2-1.3); Blood Urea Nitrogen 21 mg/dL (7-17); Calcium 8.7 mg/dL (8.4-10.2); Carbon Dioxide 27 mmol/L (22-30); Chloride 106 mmol/L (98-107); Cholesterol 201 mg/dL (0-200); Estimated Glomerular Filt Rate > 60; Glucose 158 mg/dL (65-110); HDL Direct 61 mg/dL; Potassium 4.1 mmol/L (3.4-5.0); Sodium 136 mmol/L (137-145); Triglycerides 107 mg/dL (<150)
[2024-07-06 12:29] LABS: LDL Cholesterol Direct 105 mg/dL
[2024-07-06 13:34] LABS: Hemoglobin A1C 7.4 % (<5.7)
[2024-07-06 13:43] LABS: Vitamin D 25 Hydroxy 12.8 ng/mL
== END 2024-07-06 11:28 | disposition home or self-care (01) ==
LOC: ANHLAB 11:32
PROVIDERS: PCP Emergency Medicine; Visit Provider Emergency Medicine
DX: E78.5 Hyperlipidemia, unspecified (principal); E55.9 Vitamin D deficiency, unspecified; E11.9 Type 2 diabetes mellitus without complications
CPT/HCPCS: 36415; 80053; 80061; 82306; 83036

== ENCOUNTER 2024-10-14 12:57 | Outpatient (CLI) | payer MEDICARE, SELFPAY ==
--- NOTE | ~2024-10-14 | US_ITS ---
Pelvic ultrasound. Clinical History: Postmenopausal bleeding Technique: Realtime transabdominal and transvaginal scanning of the pelvis was performed. Color flow Doppler and Doppler spectral analysis were performed. Findings: The uterus is anteverted, and measures 10.4 x 5.1 x 8.0 cm. The endometrial stripe has a t hickness of 3 mm. Probable ill-defined fibroid towards the fundus measures 5.1 x 3.6 x 3.1 cm.. The right ovary measures 1.8 x 1.0 x 1.0 cm. No significant right ovarian or adnexal mass is seen. The left ovary is not visualized. No significant left ovarian or adnexal mass is seen. There is no evidence of free fluid in the cul de sac. Impression: Probable ill-defined uterine fibroid, as above. No evidence for abnormal endometrial thickening. Reviewed, dictated and finalized at [facility]. Impression: Probable ill-defined uterine fibroid, as above. No evidence for abnormal endometrial thickening.
--- OUTSIDE RECORDS SUMMARY | 2024-10-14 14:16 | XMS_ITS | CONTINUITY OF CARE DOCUMENT ---
Author Name maida eduardaluciano Address Unknown Organization [facility] Address [address] [place] [address] Phone [phone] Care Team Providers Care Water Softener Servicer Name Role Phone Dung BRYANT, Nicolás Unavailable [phone] MALOU MILLARD MD Unavailable MALOU MILLARD MD Unavailable PROBLEMS Condition Status Date Provider Notes Chest pain active Nicolás Razo MD Family History of CVA or Stroke: active ? Sidney Razo MD Family History of Hypertension: active ? Marlo Razo MD Family History of Sudden Cardiac : active ? Nicolás Razo MD Hypertension active ? Nicolás Razo MD Palpitations active Nicolás Razo MD Diabetes, Type 2 active Nicolás Razo MD Snoring active Nicolás Razo MD Obesity active Nicolás Razo MD ENCOUNTERS Date Type Provider Location Encounter Diag nosis - In-person encounter Office Visit Nicolás Razo MD [place] [facility] SnoringObesity - In-person encounter Office Visit Nicolás Razo MD [place] [facility] Chest painFamily History of CVA or Stroke:Family History of Hypertension:Family History of Sudden Cardiac :HypertensionPalp itationsDiabetes, Type 2 VITAL SIGNS Date Observation Value Provider Body Mass Index (Ratio) 40.40 kg/m2 Marlo Razo MD blood pressure, cuff size large Ke sea Coreyer blood pressure, diastolic 60 mm[Hg] Ke rri Josueueneenrikeelder blood pressure, systolic 122 mm[Hg] Rox Salasueneenrikeelder oxygen saturation, oximetry 98 % Malissa Wilkes respiratory rate E&M 18 /min Malissa Covarrubias concepciónrosasnfeldchiquis pulse rate 87 /min Malissa Aguiar lder weight E&M 258 [lb_av] Malissa Aguiar lder height E&M 67 [in_i] Malissa Stefania er Body Mass Index (Ratio) 39.62 kg/m2 Marlo Razo MD blood pressure, cuff size large Ke sea Burnettearnolder blood pressure, diastolic 80 mm[Hg] Ke sea Burnettebria blood pressure, systolic 120 mm[Hg] Rox Dominiquedonyes oxygen saturation, oximetry 98 % Malissa Burnettearnoldchiquis respiratory rate E&M 20 /min Malissa Covarrubias concepciónscoteldchiquis pulse rate 81 /min Malissa Stefania lder weight E&M 253 [lb_av] Malissa Salasjoselyn er height E&M 67 [in_i] Malissa Stefania [facility] ALLERGIES No Known Drug Allergies HISTORY OF MEDICATION USE Medication Status Instructions Dates Provider Indications Com ments AZO TABS TABLET active as needed 2 Malissa Wilkes TUMS 500 MG ORAL TABLET CHEWABLE active as needed 2 Malissa Wilkes ACID SMALL ENGINE TECHNICIAN TABLET active no more than 2 a day 2 Malissa Wilkes PAROXETINE HCL 20 MG ORAL TABLET active once a day 2 Malissa Wilkes TRIAMTERENE-HCT Z 75-50 MG ORAL TABLET active 1/2 pill a day 2 Malissa Wilkes METFORMIN HCL 500 MG ORAL TABLET active take one pill twice a day 2 Malissa Wilkes ASPIRIN ADULT LOW DOSE 81 MG ORAL TABLET DELAYED RELEASE active One Tab By Mouth Daily 2 Malissa Wilkes VENTOLIN HFA 108 (90 BASE) MCG/ACT INHALATION AEROSOL SOLUTION active 2 puffs every 4-6 hours 2 Malissa Wilkes [facility] MELATONIN CAPSULE active at bedtime 2 Malissa Wilkes ALLERGY RELIEF 10 MG ORAL TABLET active take one pill a day 2 Malissa Wilkes LISINOPRIL 10 MG ORAL TABLET active ONE TAB. DAILY 2 Malissa Wilkes SOCIAL HISTORY Date Observation Value Provider social history E&M Marital Statu s: Vance abramsen: 4 O ccupation: Childcare Smoking History: P atient has never smoked. Nicolás Razo MD social history reviewed E&M revi ewed - no changes required Nicolás Razo MD alcohol use, average drinks per day social Malissa Chung alcohol use yes Malissa Solaresenrikemayte remedios passive cigarette sm kristin exposure no Malissa Salaskal smoking status Never smoker Malissa vang passive cigarette sm kristin exposure no Nicolás Razo MD alcohol use, average drinks per day social Nicolás Razo MD alcohol use yes Nicolás Aparicio social history E&M Marital Statu s: Vance nayeli: 4 O ccupation: Childcare Smoking History: P atient has never smoked. Nicolás Razo MD social history reviewed E&M revi ewed - no changes required Nicolás Razo MD Surgical History of - Tonsillectomy Surgical History of - Tonsillectomy Nicolás Razo MD smoking status Never smoker Malissa vang FAMILY HISTORY Family Member Condition Father Negative FH of Coron cirilo Artery Disease Mother Family History of Ulloa dden Cardiac : Mother Family History of Hy pertension: Mother Family History of Di abetes: Mother Family History of CV A or Stroke: INSURANCE PROVIDERS Payer name Policy type / Coverage type [place] red green party ID [employer] INS Commercial insuran ce company [id number] [place] Medicare [id number] ADVANCE DIRECTIVES Name Date DISCUSSED - NO DECISION MADE TREATMENT PLAN Date Name Performer Cardiology Follow up :Stress ebony t normal Nicolás Razo MD Cardiology Follow up Nicolás melgoza MD Cardiology New Patient Nicolás dash MD Cardiology New Patient Nicolás man MD Cardiology New Patient Nicolás dash MD Cardiology New Patient Nicolás dash MD Date Name Sleep Study Home Mobile Cardiac Tele Stress Exercise Card iolite Complete Echo HISTORY OF PROCEDURES Procedure Date Procedure Name Provider Procedure Notes S tatus Cardiolite, 2 units Nicolás Razo MD completed SPECT Images Anyi Toussaint MD complet ed Stress EKG Nicolás Razo MD complete d Mobile Cardiac Telem etry - Tech Nicolás Razo MD completed Mobile Cardiac Telem etry - Prof Nicolás Razo MD completed EKG Nicolás Razo MD complete d
--- OUTSIDE RECORDS SUMMARY | 2024-10-14 14:16 | XMS_ITS ---
Author Organization [facility] [employer] Address [address] [facility] [address] [place] [address] Care Team Providers Care Senior Attorney Name Role Phone Tobias Cerda MD Primary Care Provider Unavail able Phyllis Wharton Unavailable [phone] Allergies Allergen (clinical drug ingredient) Drug/Non Drug Allergy documented on EMR Reaction Allergy Type Onset Date Status BEE VENOM PROTEIN (HONEY BEE) (uncoded) Unknown Allergy 11/21/2023 Active CONTACT METAL AGENT (uncoded) Unknown Allergy 11/21/2023 Active GRASS POLLEN (uncoded) Unknown Allergy 024 Active RAGWEED POLLEN (uncoded) Unknown Allergy 11/21/2023 Active Tree and shrub pollen TREE AND SHRUB ALEXANDRA STEFANO (uncoded) Unknown Allergy 11/21/2023 Active [place] pollen WEED POLLEN (uncoded) Unknown Allergy 2023 Active Watermelon Flavor Unknown Drug Allergy Active REASON FOR VISIT 3 month f/u Medications Medication SIG (Take, Route, Frequency, Duration) Notes Start Date End Date Status Aspirin 81 81 MG 1 tablet Orally Once a day Active Venlafaxine HCl ER 150 MG 1 capsule Oral Once a day for 90 days Active Omeprazole 40 MG Oral 11/07/2023 Ac tive metFORMIN HCl 1000 MG Oral 11/07/2023 Active Lisinopril 20 MG Oral 11/07/2023 Ac tive ProAir HFA 108 (90 Base) MCG/ACT Inhalation 11/07/2023 Active Social History Tobacco Use: Social History Observation Description Date Details (start date - stop date) Never Smoker NA - NA Sex Assigned At : Social History Observation Description Sex Assigned At Female Tobacco Control (Standard) Question Answer Notes Tobacco use: Nonsmoker Problems Problem Type SNOMED Code ICD Code Onset Dates Problem Status W/U Status Risk Notes Problem Essential hypertension ([id number]) Benign essential HTN (I10) Active confirmed Vital Signs Blood pressure systolic 148 mm Hg 10/09/19 25 Blood pressure diastolic 74 mm Hg 025 Heart Rate 87 /min 10/08/2024 Height 66.00 in 10/08/2024 Weight 244 lbs 10/08/2024 BMI 39.38 kg/m2 10/08/2024 Height-cm 167.64 cm 10/08/2024 Weight-kg 110.68 kg 10/08/2024 Encounters Encounter Location Date Provider Diagnosis [facility] [employer] [facility] [address] [place] [address] 10/08/2024 Phyllis Dio Generalized anxiety disorder F41.1 ; Attention-deficit hyperactivity disorder, combined type F90.2 ; Benign essential HTN I10 ; Encounter for screening for depression Z13.31 and Major depressive disorder, recurrent, moderate F33.1 Assessments Encounter Date Diagnosis (ICD Code) Assessment Notes Treatment Notes Treatment Clinical Notes Section Notes 10/08/2024 Generalized anxiety disorder (ICD-10 - F41.1) Assessment and Plan: depression - stable, states depression is alwasy there, but manages - Finds medications helpful, greatly enjoys therapy with Karina plan: - continue venlafaxine ER 150 mg daily - continue therapy with Karina - continue to establish boundaries, using effective coping techniques anxiety - stable plan: - as above ADHD - stable plan: - continue atomoxetine 40 mg daily follow up 3 months, sooner if concerns arise 10/08/2024 Attention-deficit hyperactivity disorder, combined type (ICD-10 - F90.2) Assessment and Plan: depression - stable, states depression is alwasy there, but manages - Finds medications helpful, greatly enjoys therapy with Karina plan: - continue venlafaxine ER 150 mg daily - continue therapy with Karina - continue to establish boundaries, using effective coping techniques anxiety - stable plan: - as above ADHD - stable plan: - continue atomoxetine 40 mg daily follow up 3 months, sooner if concerns arise 10/08/2024 Benign essential HTN (ICD-10 - I10) Assessment and Plan: depression - stable, states depression is alwasy there, but manages - Finds medications helpful, greatly enjoys therapy with Karina plan: - continue venlafaxine ER 150 mg daily - continue therapy with Karina - continue to establish boundaries, using effective coping techniques anxiety - stable plan: - as above ADHD - stable plan: - continue atomoxetine 40 mg daily follow up 3 months, sooner if concerns arise 10/08/2024 Encounter for screening for depression (ICD-10 - Z13.31) Assessment and Plan: depression - stable, states depression is alwasy there, but manages - Finds medications helpful, greatly enjoys therapy with Karina plan: - continue venlafaxine ER 150 mg daily - continue therapy with Karina - continue to establish boundaries, using effective coping techniques anxiety - stable plan: - as above ADHD - stable plan: - continue atomoxetine 40 mg daily follow up 3 months, sooner if concerns arise 10/08/2024 Major depressive disorder, recurrent, moderate (ICD-10 - F33.1) Assessment and Plan: depression - stable, states depression is alwasy there, but manages - Finds medications helpful, greatly enjoys therapy with Karina plan: - continue venlafaxine ER 150 mg daily - continue therapy with Karina - continue to establish boundaries, using effective coping techniques anxiety - stable plan: - as above ADHD - stable plan: - continue atomoxetine 40 mg daily follow up 3 months, sooner if concerns arise Plan Of Treatment Medication Medication Name Sig Start Date Stop Date Notes Venlafaxine HCl ER 150 MG 1 capsule Oral Once a day for 90 days Next Appt Details Provider Name:Karina Calero, 10/19/2024 11:00:00 AM, [address], [address], [place], [address], Provider Name:Karina Calero, 11/02/2024 10:00:00 AM, [address], [address], [place], [address], Provider Name:Karina Calero, 11/19/2024 11:00:00 AM, [address], [address], [place], [address], Provider Name:Karina Calero, 12/03/2024 11:00:00 AM, [address], [place] [address], [place], [address], Provider Name:Karina crocker Abdias, 12/17/2024 11:00:00 AM, [address], [address], [address], Provider Name:Karina Wilson Kian s Abdias, 12/31/2024 10:00:00 AM, [facility], [address], [address], Provider Name:Phyllis blake, 12/31/2024 11:15:00 AM, [address], [address], [address], Progress Notes * YSABEL MOORE KDOB:1950 (73 yo F)Acc No.[id number]:10/08/2024 Patient: Adrian MITESHMARYANA YSABEL K Provider: Gaudencio Wharton :1950 A ge:73 Y S ex:Female Date:10/08/2024 Address:[address] [place], [place] [id number] Pcp:Tobias Cerda MD Subjective: * Chief Complaints: * 1 . 3 month f/u. * HPI: D epression Screening: PARUL-7 (2018 Edition) F eeling nervous, anxious, or on edge N early every day N ot being able to stop or control worrying?More than half the days W orrying too much about different things S everal days T rouble relaxing S everal B eing so restless that it is hard to sit still S everal B ecoming easily annoyed or irritable N early every day F eeling afraid as if something awful might happen S everal days T otal PARUL-7 Score 1 2 I f you checked any problems, how difficult have they made it for you to do your work, take care of things at home, or get along with other people? V ra difficult I nterpretation of Total ( 10 to 14) Moderate [place]-Suicide Severity Rating Scale: Suicide Risk (CSRS-screener) i n the past one month Have you wished you were or wished you could go to sleep and not wake up? N o i n the past one month Have you actually had any thoughts of killing yourself? N o H ave you ever done anything, started to do anything, or prepared to do anything to end your life? N o D epression screening: PHQ-9 L ittle interest or pleasure in doing things?Several days F eeling down, depressed, or hopeless S everal days T rouble falling or staying asleep, or sleeping too much M ore than half the days F eeling tired or having little energy M ore than half the days P oor appetite or overeating M ore than half the days F eeling bad about yourself or that you are a failure, or have let yourself or your family down N ot at all T rouble concentrating on things, such as reading the newspaper or watching television M ore than half the days M oving or speaking so slowly that other people could have noticed; or the opposite, being so fidgety or restless that you have been moving around a lot more than usual N ot at all T houghts that you would be better off or of hurting yourself in some way N ot at all T otal Score 1 0 I nterpretation M oderate Depression Intervention D epression Screening Findings P ositve F ollow-Up for Depression M [facility] treatment assessment, Patient follow-up to return when and if necessary S uicide Risk Assessment Performed 0 10/08/2024 A dditional Evaluation for Depression P sychiatric interview and evaluation N jessica of the standardized tool used for adult depression screening: P atient Health Questionnaire (PHQ-9) H istory of Presenting Problem: 73 y/o female, , here to follow up for depression, anxiety and ADHD. Uses cane. triggers: -alcohol, her father was alcoholic. grandsons living with her, one autistic, and?interpersonal stress, mental health Enjoyed the holidays, but not the same as it used to be. Stressful at home, things not much different there. Karina for therapy, going well. Connects with her really well finds it very beneficial.? Has been crabby lately, mood hasn't been to bad, depression better with medications. States she's always depressed, but it's been minimal lately. Anxiety has been higher, but attributes this to the holidays, managing it. Sleep could be better, but acknowledges poor sleep hygiene as contrbuting factor. Stays up late playing games and reading. Denies panic attacks, SI, manic symptoms, psychosis. Appetite fine, no concerns. Feels ADHD stable on atomoxetine. Talked a lot about stressors: Grandsons living with her, cause stress, trying to maintain boundaries. Notes difficulty with holding him accountable for things such as cleaning when he's asked, because he's charming. Overall going okay. recently said he was going to quit drinking, but he didn't last long with it. Some disappointment with that. P sychotherapy with Med eval: Therapy with Med eval P sychotherapy with Medication management Y es P sychotherapy done Time Spent Minute 1 6 Min T ype of therapy done S upportive Therapy * ROS: P atient not eligible due to active diagnosis of hypertension: G 9744. * Medical History: P roblems: Attention deficit hyperactivity disorder, combined type, Generalized anxiety disorder, Moderate recurrent major depression, Obesity, Tremor, Benign essential hypertension, Type 2 diabetes mellitus without complications. * Surgical History: T onsilectomy/adenoids 07/15/1978, Cataract surgery (13990) 01/12/2017. * Family History: F ather: , Alcohol abuse . M aternal Uncle: Depressive disorder . U nspecified Relation: Grandson x2 Substance abuse (mj), ADHD, depression, anxiety, autism spectrum. All of my children and grandchildren are on the spectrum. . M other: , Anxiety disorder . M aternal Grandmother: , Diabetes mellitus . B rother: Depressive disorder , Substance abuse . S ister: Family history of Suicide, Notes: around age 60 . S on: Depressive disorder .?Daughter: Depressive disorder . Ysabel is the oldest of 7 children, born in [place] and moved to [place] at 7 years old. Two of her sisters are (cancer and suicide). 5 siblings are living. * Social History: T obacco Use: T obacco Control (Standard) T obacco use: N onsmoker M igrated Social History: M igrated Social History: Alcohol Intake: Occasional 10/30/2021,Tobacco Years: Never smoker 10/30/2021. M iscellaneous: A dvance Care Planning A dvance Directive R efused to discuss advance care planning * Medications: T aking Aspirin 81 81 MG Tablet Delayed Release 1 tablet Orally Once a day , Taking Omeprazole 40 MG Capsule Delayed Release Oral , Taking ProAir HFA 108 (90 Base) MCG/ACT Aerosol Solution Inhalation , Taking metFORMIN HCl 1000 MG Tablet Oral , Taking Lisinopril 20 MG Tablet Oral , Taking Venlafaxine HCl ER 150 MG Capsule Extended Release 24 Hour 1 capsule Oral Once a day , Medication List reviewed and reconciled with the patient * Allergies: T REE AND SHRUB POLLEN: Allergy - Onset Date 11/21/2023, GRASS POLLEN: Allergy - Onset Date 11/21/2023, WEED POLLEN: Allergy - Onset Date 11/21/2023, CONTACT METAL AGENT: Allergy - Onset Date 11/21/2023, RAGWEED POLLEN: Allergy - Onset Date 11/21/2023, BEE VENOM PROTEIN (HONEY BEE): Allergy - Onset Date 11/21/2023, Watermelon Flavor. Objective: * Vitals: B P:148/74mm Hg, HR:87/min, Wt:244lbs, Wt-k.68 kg, Ht: 66.00 in, Ht-cm: 167.64 cm, BMI:39.38Index, Body Surface Area: 2.27. Assessment: * Assessment: 1. M ajor depressive disorder, recurrent, moderate - F33.1 (Primary) 2 . G eneralized anxiety disorder - F41.1 3 . A ttention-deficit hyperactivity disorder, combined type - F90.2 4 . B enign essential HTN - I10 5 . Encounter for screening for depression - Z13.31 Assessment and Plan: depression - stable, states depression is alwasy there, but manages - Finds medications helpful, greatly enjoys therapy with Karina plan: - continue venlafaxine ER 150 mg daily - continue therapy with Karina - continue to establish boundaries, using effective coping techniques anxiety - stable plan: - as above ADHD - stable plan: - continue atomoxetine 40 mg daily follow up 3 months, sooner if concerns arise Plan: * Treatment: * Procedure Codes: 9 0813 PSYCHOTHERAPY W/PATIENT W/E&M SRVCS 30 MIN, G8950 PREHTN/HTN BP DOC INDCD F/U DOC, 70753 BEHAV ASSMT W/SCORE & DOCD/STAND INSTRUMENT, G9744 Pt not magda d/t act dig htn, G8753 MOST RECENT SYSTOLIC BP >= 140MM HG, G8431 CLIN DEPRESSION SCREEN DOC * Billing Information: * Visit Code: * Procedure Codes: 39035 PSYCHOTHERAPY W/PATIENT W/E&M SRVCS 30 MIN. G8950 PREHTN/HTN BP DOC INDCD F/U DOC. 85657 BEHAV ASSMT W/SCORE & DOCD/STAND INSTRUMENT. G9744 Pt not magda d/t act dig htn. G8753 MOST RECENT SYSTOLIC BP >= 140MM HG. G8431 CLIN DEPRESSION SCREEN DOC. * Electronic signature of Lj Wharton on 10/14/2024 at 02:16 PM CDT Sign off status: Pending * Provider: Gaudencio Wharton Date: 0 10/08/2024 Generated for Karlene lou/[place] on: 0 10/14/2024 02:16 PM CDT History and Physical Notes * HPI (History of Present Illness) Category Sub-Category Detail Notes Category Not es History of Presenting Problem 73 y/o female, , here to follow up for depression, anxiety and ADHD. Uses cane. triggers: -alcohol, her father was alcoholic. grandsons living with her, one autistic, and interpersonal stress, mental health Enjoyed the holidays, but not the same as it used to be. Stressful at home, things not much different there. Karina for therapy, going well. Connects with her really well finds it very beneficial. Has been crabby lately, mood hasn't been to bad, depression better with medications. States she's always depressed, but it's been minimal lately. Anxiety has been higher, but attributes this to the holidays, managing it. Sleep could be better, but acknowledges poor sleep hygiene as contrbuting factor. Stays up late playing games and reading. Denies panic attacks, SI, manic symptoms, psychosis. Appetite fine, no concerns. Feels ADHD stable on atomoxetine. Talked a lot about stressors: Grandsons living with her, cause stress, trying to maintain boundaries. Notes difficulty with holding him accountable for things such as cleaning when he's asked, because he's charming. Overall going okay. recently said he was going to quit drinking, but he didn't last long with it. Some disappointment with that. Depression screening PHQ-9 Little interest or pleasure in doing things: Several days Feeling down, depressed, or hopeless: Se veral days Trouble falling or staying a sleep, or sleeping too much: More than half the days Feeling tired or having little energy: M ore than half the days Poor appetite or overeating: More than h longterm the days Feeling bad about yourself o r that you are a failure, or have let yourself or your family down: Not at all Trouble concentrating on thi ngs, such as reading the newspaper or watching television: More than half the days Moving or speaking so slowly that other people could have noticed; or the opposite, being so fidgety or restless that you have been moving around a lot more than usual: Not at all Thoughts that you would be b sweetie off or of hurting yourself in some way: Not at all Total Score: 10 Interpretation: Moderate Depression Intervention Depression Screening Findings: P ositve Follow-Up for Depression: [facility] treatment assessment, Patient follow-up to return when and if necessary Suicide Risk Assessment Performed: 10/08 Additional Evaluation for Depression: Ps ychiatric interview and evaluation Name of the standardized too l used for adult depression screening:: Patient Health Questionnaire (PHQ-9) Depression Screening PARUL-7 (2018 Edition) Feelin g nervous, anxious, or on edge: Nearly every day Not being able to stop or control worryi ng: More than half the days Worrying too much about different things : Several days Trouble relaxing: Several days Being so restless that it is hard to sit still: Several days Becoming easily annoyed or irritable: Ne lala every day Feeling afraid as if something awful nadeem ht happen: Several days Total PARUL-7 Score: 12 If you checked any problems, how difficult have they made it for you to do your work, take care of things at home, or get along with other people?: Very difficult Interpretation of Total: (10 to 14) Mode rate Psychotherapy with Med eval Therapy with Med katheryn l Psychotherapy with Medication management: Yes Psychotherapy done Time Spent Minute: 16 Min Type of therapy done: Supportive Therapy [place]-Suicide Severity Rating Scale Suicide Risk (CSRS-screener) in the past one month Have you wished you were or wished you could go to sleep and not wake up?: No in the past one month Have y ou actually had any thoughts of killing yourself?: No Have you ever done anything, started to do anything, or prepared to do anything to end your life?: No
--- OUTSIDE RECORDS SUMMARY | 2024-10-14 14:16 | XMS_ITS | Data Portability ---
Author Organization [facility] Sameer [facility] Address [address] [place] [address] Care Team Providers Care Community Outreach Specialist Name Role Phone JUNIOR MILLARD Primary Care Provider Assessment No assessment recorded. Plan of Treatment Reminders Order Date Submit Date Provider Last Modified By Organization Details Last Modified Time Details Appointments None recorded . Lab CMP, serum or plasma 2018 019 [facility], [address], [place], [address], 0 13:09:45 lipid panel, serum 2018 019 [facility]ENCIO [facility], [address] [place], [place] [address], [address], [place], [address], 0 13:09:46 microalb umin, urine 2018 019 [facility]ENCIO [facility], [address] [place], [place] [address], [address], [place], [address], 0 13:09:47 HbA1c (hemoglo bin A1c), blood 2018 019 FIDENCIO In-Office Order, Internal Use Only DO Not Attach Compendium DO Not Attach Compendium, Do Not Delete/merge, [id number] 9 11:05:06 HbA1c (hemoglo bin A1c), blood 2018 019 [facility]ENCIO [facility], [address] [place], [place] [address]aissatouNeolineardigna Juve, [address], [place], [address], 9 06:21:34 CMP, serum or plasma 2018 019 FIDENCIO JUARES, [address], [address], [place], [address], 9 06:21:32 CBC 2018 019 [facility]IDENCIO [facility], [address], [address], [place], [address], 9 06:21:33 lipid panel, serum 2018 019 FIDENCIO JUARES, [address], [address], [place], [address], 9 06:21:33 HbA1c (hemoglo bin A1c), blood 2017 018 FIDENCIO JUARES, [address], [address], [place], [address], 8 16:40:55 CMP, serum or plasma 2017 018 FIDENCIO JUARES, [address], [address], [place], [address], 8 16:40:55 lipid panel, serum 2017 018 FIDENCIO LAB[facility], [address], [address], [place], [address], 8 09:46:34 lipid panel, serum 2017 018 FIDENCIO JUARES, [address], [address], [place], [address], 8 16:40:[address] referral 2018 019 FIDENCIO Barakat MD, [address], [place], [address], 9 12:31:47 ENT referral 2018 019 jason Lozoya MD, [address], [place], [address], 9 16:51:21 urogynec ologist referral - Please call patient to schedule appt. Thank you 2018 019 james Cardoza MD, [address], [place], [address], 0 09:50:02 cardiolo gist referral - Please call patient to schedule appt. Thank you 2018 019 [facility], [address], [place], [address], 9 14:57:07 ENT referral - Please call patient to schedule appt. Thank you 2017 018 [email or web address] Not available 8 16:08:43 Procedures None recorded . Surgeries None recorded . Imaging US, gallblad antonieta [address] ([facility]), [address], [place], [address], 8 13:45:26 Medication Orders lisinopr il 10 mg tablet 2019 020 INTERFACE [facility] #[id number], [address], [place], [place], [id number], 0 12:11:21 triamter rosas 75 mg-hydro chloroth iazide 50 mg tablet 2019 020 INTERFACE [facility] #56863, [address], [place], [place], [id number], 0 12:11:30 metformi n 500 mg tablet 2019 020 INTERFACE [facility] #[id number], [address], [place], [place], [id number], 0 12:11:31 paroxeti ne 20 mg tablet 2019 020 INTERFACE [facility] #56161, [address], [place], [place], [id number], 0 12:11:31 omeprazo le 20 mg capsule, delayed release 2018 019 INTERFACE [facility] #87331, [address], [place], [place], [id number], 9 10:55:01 paroxeti ne 20 mg tablet 2017 018 [id number], [address], [place], [place], [id number], 8 13:44:32 Patient TargetsNo targets recorded. Patient InstructionsNo instructions recorded. Reason for Referral ENT Referral for Bilateral t innitus Please call patient to schedule appt. Thank you Referring Physician: Junior Millard, Internal Medicine, Encounter Date: 11/12/2017 Soil Science Teacher Referral for Ab normal cardiac conduction Abnormal cardiac function Please call patient to schedule appt. Thank you Referring Physician: Junior Millard Internal Medicine, Encounter Date: 07/16/2018 Fish Protector Referral for Dysphasia Worsening dysphagia Referring Physician: Junior Millard Internal Medicine, Encounter Date: 05/06/2019 ENT Referral for Bilateral t innitus Worsening hearing loss Referring Physician: Junior Millard Internal Medicine, Encounter Date: 05/06/2019 Urogynecologist Referral for Incontinence Bladder leakage Please call patient to schedule appt. Thank you Referring Physician: Junior Millard, Internal Medicine, Encounter Date: 05/06/2019 Results Created Date Observation Date Name Description Value Unit Range Abnormal Flag Note LastModifiedBy Organization Detail LastModifiedTime 07/25/19 19 07/26/2018 CMP, serum or plasm a glucose 133 mg/dL 65-99 above high normal Not Available [facility] ([email or web address]) [address] [place], [address], 07/26/2018 06:21:32 07/25/1907/26/2018 CMP, serum or plasm a BUN 25 mg/dL 8-27 Not Available [facility] ([email or web address]) [address] [place], [address], 07/26/2018 06:21:32 07/25/1907/26/2018 CMP, serum or plasm a creatinine 0.77 mg/dL 0.57-1 .00 Not Available [facility] ([email or web address]) [address] [place], [address], 07/26/2018 06:21:32 07/25/1907/26/2018 CMP, serum or plasm a eGFR if nonafricn AM 80 mL/mi n/1.7 3 >59 Not Available [facility] ([email or web address]) [address] [place], [address], 07/26/2018 06:21:32 07/25/1907/26/2018 CMP, serum or plasm a eGFR if africn AM 92 mL/mi n/1.7 3 >59 Not Available [facility] ([email or web address]) [address] [place], [address], 07/26/2018 06:21:32 07/25/1907/26/2018 CMP, serum or plasm a BUN/creatini ne ratio 32 12-28 above high normal Not Available [facility] ([email or web address]) [address] [place], [address], 07/26/2018 06:21:32 07/25/19 19 07/26/2018 CMP, serum or plasm a sodium 141 mmol/ L 134-14 4 Not Available [facility] ([facility]) [address] [facility] [place], [address], 07/26/2018 06:21:32 07/25/19 19 07/26/2018 CMP, serum or plasm a potassium 4.4 mmol/ L 3.5-5. 2 Not Available [facility] ([facility]) [address] [facility] [place], [address], 07/26/2018 06:21:32 07/25/1907/26/2018 CMP, serum or plasm a chloride 103 mmol/ L 96-106 Not Available [facility] ([facility]) [address] [facility] [place], [address], 07/26/2018 06:21:32 07/25/1907/26/2018 CMP, serum or plasm a carbon dioxide, total 23 mmol/ L 20-29 Not Available [facility] ([facility]) [address] [facility] [place], [address], 07/26/2018 06:21:32 07/25/19 19 07/26/2018 CMP, serum or plasm a calcium 9.4 mg/dL 8.7-10 .3 Not Available [facility] ([facility]) [address] [facility] [place], [address], 07/26/2018 06:21:32 07/25/1907/26/2018 CMP, serum or plasm a protein, total 6.8 g/dL 6.0-8. 5 Not Available [facility] ([facility]) [address] [facility] [place], [address], 07/26/2018 06:21:32 07/25/1907/26/2018 CMP, serum or plasm a albumin 4.1 g/dL 3.6-4. 8 Not Available [facility] ([facility]) [address] [facility] [place], [address], 07/26/2018 06:21:32 07/25/1907/26/2018 CMP, serum or plasm a globulin, total 2.7 g/dL 1.5-4. 5 Not Available [facility] ([facility]) [address] [facility] [place], [address], 07/26/2018 06:21:32 07/25/1907/26/2018 CMP, serum or plasm a A/G ratio 1.5 1.2-2. 2 Not Available [facility] ([facility]) [address] [facility] [place], [address], 07/26/2018 06:21:32 07/25/1907/26/2018 CMP, serum or plasm a bilirubin, total 0.3 mg/dL 0.0-1. 2 Not Available [facility] ([facility]) [address] [facility] [place], [address], 07/26/2018 06:21:32 07/25/1907/26/2018 CMP, serum or plasm a alkaline phosphatase 59 IU/L 39-117 Not Available [facility] ([facility]) [address] [facility] [place], [address], 07/26/2018 06:21:32 07/25/1907/26/2018 CMP, serum or plasm a AST (SGOT) 14 IU/L 0-40 Not Available [facility] ([facility]) [address] [facility] [place], [address], 07/26/2018 06:21:32 07/25/1907/26/2018 CMP, serum or plasm a ALT (SGPT) 16 IU/L 0-32 Not Available [facility] ([facility]) [address] [facility] [place], [address], 07/26/2018 06:21:32 07/25/1907/26/2018 CBC WBC 5.6 x10e3 /uL 3.4-10 .8 Not Available [facility] ([facility]) [address] [place], [address], 07/26/2018 06:21:33 07/25/1907/26/2018 CBC RBC 4.69 x10e6 /uL 3.77-5 .28 Not Available [facility] ([facility]) [address] [facility], [place], [address], 07/26/2018 06:21:33 07/25/1907/26/2018 CBC hemoglobin 13.0 g/dL 11.1-1 5.9 Not Available [facility] ([facility]) [address] [place], [address], 07/26/2018 06:21:33 07/25/1907/26/2018 CBC hematocrit 40.1 % 34.0-4 6.6 Not Available [facility] ([facility]) [address] [place], [address], 07/26/2018 06:21:33 07/25/1907/26/2018 CBC MCV 86 fL 79-97 Not Available [facility] ([facility]) [address] [place], [address], 07/26/2018 06:21:33 07/25/1907/26/2018 CBC MCH 27.7 pg 26.6-3 3.0 Not Available [facility] ([facility]) [address] [place], [address], 07/26/2018 06:21:33 07/25/1907/26/2018 CBC MCHC 32.4 g/dL 31.5-3 5.7 Not Available [facility] ([facility]) [address] [place], [address], 07/26/2018 06:21:33 07/25/1907/26/2018 CBC RDW 14.5 % 12.3-1 5.4 Not Available [facility] ([facility]) [address], [place], [address], 07/26/2018 06:21:33 07/25/1907/26/2018 CBC platelets 270 x10e3 /uL 150-37 9 Not Available [facility] ([facility]) [address] [place], [address], 07/26/2018 06:21:33 07/25/1907/26/2018 CBC NRBC ROVING WINDER Not Available [facility] ([facility]) [address] [place], [address], 07/26/2018 06:21:33 07/25/1907/26/2018 lipid panel , serum cholesterol, total 191 mg/dL 100-19 9 Not Available [facility] ([facility]) [address] [place], [address], 07/26/2018 06:21:33 07/25/1907/26/2018 lipid panel , serum triglyceride s 91 mg/dL 0-149 Not Available [facility] ([facility]) [address] [place], [address], 07/26/2018 06:21:33 07/25/1907/26/2018 lipid panel , serum HDL cholesterol 61 mg/dL >39 Not Available [facility] ([facility]) [address] [place], [address], 07/26/2018 06:21:33 07/25/1907/26/2018 lipid panel , serum VLDL cholesterol fredy 18 mg/dL 5-40 Not Available [facility] ([facility]) [address] [place], [address], 07/26/2018 06:21:33 07/25/1907/26/2018 lipid panel , serum LDL cholesterol calc 112 mg/dL 0-99 above high normal Not Available [facility] ([facility]) [address] [facility] [place], [address], 07/26/2018 06:21:33 07/25/1907/26/2018 lipid panel , serum comment: ROVING WINDER Not Available [facility] ([facility]) [address] [facility], [place], [address], 07/26/2018 06:21:33 07/25/1907/26/2018 HbA1c (hemo globi n A1c), blood hemoglobin A1C 6.5 % 4.8-5. 6 above high normal Predi abete s: 5.7 - 6.4 Diabe ebony: >6.4 Glyce angelica contr ol for adult s with diabe ebony: <7.0 Not Available [facility] ([facility]) [address] [facility], [place], [address], 07/26/2018 06:21:34 07/25/1907/26/2018 diabe ebony patie nt educa tion pdf image . Not Available [facility] ([facility]) [address] [facility], [place], [address], 07/26/2018 06:21:34 05/06/2005/06/2019 HbA1c (hemo globi n A1c), blood HbA1c 6.5% Not Available In-Office Order Internal Use Only DO Not Attach Compendium DO Not Attach Compendium, Do Not Delete/merge, [id number] 05/06/2019 10:54:18 02/22/2002/23/2020 CMP, serum or plasm a glucose 119 mg/dL 65-99 above high normal Not Available [facility] ([facility]) [address] [facility], [place], [address], 02/23/2020 13:09:45 02/22/2002/23/2020 CMP, serum or plasm a BUN 30 mg/dL 8-27 above high normal Not Available [facility] ([facility]) [address] [facility], [place], [address], 02/23/2020 13:09:45 02/22/20 02/23/2020 CMP, serum or plasm a creatinine 0.78 mg/dL 0.57-1 .00 Not Available [facility] ([facility]) [address] [place], [address], 02/23/2020 13:09:45 02/22/20 20 02/23/2020 CMP, serum or plasm a eGFR if nonafricn AM 78 mL/mi n/1.7 3 >59 Not Available [facility] ([facility]) [address] [place], [address], 02/23/2020 13:09:45 02/22/20 20 02/23/2020 CMP, serum or plasm a eGFR if africn AM 90 mL/mi n/1.7 3 >59 Not Available [facility] ([facility]) [address] [place], [address], 02/23/2020 13:09:45 02/22/20 20 02/23/2020 CMP, serum or plasm a BUN/creatini ne ratio 38 12-28 above high normal Not Available [facility] ([facility]) [address] [place], [address], 02/23/2020 13:09:45 02/22/20 20 02/23/2020 CMP, serum or plasm a sodium 140 mmol/ L 134-14 4 Not Available [facility] ([facility]) [address] [place], [address], 02/23/2020 13:09:45 02/22/20 20 02/23/2020 CMP, serum or plasm a potassium 4.3 mmol/ L 3.5-5. 2 Not Available [facility] ([facility]) [address] [place], [address], 02/23/2020 13:09:45 02/22/20 20 02/23/2020 CMP, serum or plasm a chloride 103 mmol/ L 96-106 Not Available [facility] ([facility]) [address] [place], [address], 02/23/2020 13:09:45 02/22/20 20 02/23/2020 CMP, serum or plasm a carbon dioxide, total 27 mmol/ L 20-29 Not Available [facility] ([facility]) [address] [facility] [place], [address], 02/23/2020 13:09:45 02/22/20 20 02/23/2020 CMP, serum or plasm a calcium 9.3 mg/dL 8.7-10 .3 Not Available [facility] ([facility]) [address] [place], [address], 02/23/2020 13:09:45 02/22/2002/23/2020 CMP, serum or plasm a protein, total 6.5 g/dL 6.0-8. 5 Not Available [facility] ([facility]) [address] [place], [address], 02/23/2020 13:09:45 02/22/2002/23/2020 CMP, serum or plasm a albumin 4.2 g/dL 3.8-4. 8 Not Available [facility] ([facility]) [address] [facility], [place], [address], 02/23/2020 13:09:45 02/22/2002/23/2020 CMP, serum or plasm a globulin, total 2.3 g/dL 1.5-4. 5 Not Available [facility] ([facility]) [address] [place], [address], 02/23/2020 13:09:45 02/22/2002/23/2020 CMP, serum or plasm a A/G ratio 1.8 1.2-2. 2 Not Available [facility] ([facility]) [address] [place], [address], 02/23/2020 13:09:45 02/22/2002/23/2020 CMP, serum or plasm a bilirubin, total 0.2 mg/dL 0.0-1. 2 Not Available [facility] ([facility]) [address] [facility] [place], [address], 02/23/2020 13:09:45 02/22/20 20 02/23/2020 CMP, serum or plasm a alkaline phosphatase 64 IU/L 39-117 Not Available [facility] ([facility]) [address] [facility], [place], [address], 02/23/2020 13:09:45 02/22/20 20 02/23/2020 CMP, serum or plasm a AST (SGOT) 18 IU/L 0-40 Not Available [facility] ([facility]) [address] [facility], [place], [address], 02/23/2020 13:09:45 02/22/2002/23/2020 CMP, serum or plasm a ALT (SGPT) 27 IU/L 0-32 Not Available [facility] ([facility]) [address] [facility], [place], [address], 02/23/2020 13:09:45 02/22/20 20 02/23/2020 lipid panel , serum cholesterol, total 206 mg/dL 100-19 9 above high normal Not Available [facility] ([facility]) [address] [facility] [place], [address], 02/23/2020 13:09:46 02/22/2002/23/2020 lipid panel , serum triglyceride s 106 mg/dL 0-149 Not Available [facility] ([email or web address]) [address] [facility] [place], [address], 02/23/2020 13:09:46 02/22/20 20 02/23/2020 lipid panel , serum HDL cholesterol 59 mg/dL >39 Not Available [facility] ([facility]) [address] [facility] [place], [address], 02/23/2020 13:09:46 02/22/20 20 02/23/2020 lipid panel , serum VLDL cholesterol fredy 21 mg/dL 5-40 Not Available [facility] ([facility]) [address] [facility], [place], [address], 02/23/2020 13:09:46 02/22/20 20 02/23/2020 lipid panel , serum LDL cholesterol calc 126 mg/dL 0-99 above high normal Not Available [facility] ([facility]) [address] [facility], [place], [address], 02/23/2020 13:09:46 02/22/20 20 02/23/2020 lipid panel , serum comment: ROVING WINDER Not Available [facility] ([facility]) [address] [facility], [place], [address], 02/23/2020 13:09:46 02/22/20 20 02/23/2020 micro album in, urine albumin, urine 17.5 ug/mL not estab. Not Available [facility] ([facility]) [address] [facility], [place], [address], 02/23/2020 13:09:47 02/22/2002/23/2020 diabe ebony patie nt educa tion pdf . Not Available [facility] ([facility]) [address] [facility], [place], [address], 02/23/2020 13:09:47 07/01/20 18 07/01/2018 XR, chest , 2 view No observ ation record ed. [facility] (Imaging) [address] [place], [address], 07/10/2018 12:15:54 08/21/19 19 08/20/2018 event monit or No observ ation record ed. [email or web address] [facility] [address], [place], [address], 10/21/2018 11:36:27 08/26/19 19 08/26/2018 trans -thor acic echoc ardio gram (TTE) (PROC ) No observ ation record ed. [email or web address] [facility] [address], [place], [address], 10/21/2018 11:36:02 08/26/19 19 08/26/2018 cardi ac stres s test No observ ation record ed. [email or web address] [facility] [address], [place], [address], 10/21/2018 11:35:47 09/13/19 19 09/09/2018 home sleep study No observ ation record ed. [email or web address] [facility] [address], [place], [address], 10/21/2018 11:35:25 Result Notes None recorded. Problems Name Problem SNOMED Code Status Onset Date Resolution Date Notes Provider Name and Address Organization Details Recorded Time Indigest ion 526679541 Active 2017 post prandial Junior Millard MD Attn: Tunrer haro,[address] [place], [address], [facility] 8 13:32:05 Bilatera l tinnitus 50987591150 02 Active 2017 Junior Millard MD Attn: Turner haro,[address] [place], [address], [facility] 8 13:36:38 Abnormal cardiac conducti on 27513526 Active 2018 Junior Millard MD Attn: Turner haro,[address] [place], [address], [facility] - [facility] 9 17:57:35 Dysphasi a 32087534 Active 2018 Junior Millard MD Attn: Turner haro,[address] [place], [address], [facility] 9 10:43:20 Incontin ence 94592043 Active 2018 Junior Millard MD Attn: [address] [place], [address], [place] [facility] 9 10:52:24 Diabetes mellitus 15993610 Active Junior Millard MD Attn: Turner haro,[address] [facility], [place], [address], [place] [facility] 6 10:45:41 Hyperten sive disorder 57202202 Completed 07/16/2018 uJnior Millard MD Attn: Turner haro,[address] [facility], [place], [address], [place] [facility] 9 17:55:44 Asthma 026189944 Active Junior Millard MD Attn: Turner haro,[address] [facility], [place], [address], [place] [facility] 6 10:45:41 Essentia l hyperten alyssa 92876835 Active Junior Millard MD Attn: Luanpj haro,[address] [facility], [place], [address], [place] [facility] 6 10:45:41 On examinat ion - skin lesion Active Junior Millard MD Attn: Luanpj haro,[address] [facility], [place], [address], [place] [facility] 5 12:15:14 Depressi ve disorder 60339037 Active Junior Millard MD Attn: Luanpj haro,[address] [facility], [place], [address], [place] [facility] 6 12:08:20 Allergic rhinitis 48535398 Active Junior Millard MD Attn: Luanpj haro,[address] [facility], [place], [address], [place] [facility] 6 12:08:20 Shoulder joint pain 587168009 Active 2015 Junior Millard MD Attn: Turner estrellita,[address] [facility], [place], [address], [place] [facility] 6 12:23:32 Active immuniza tion Active 2016 Junior Millard MD Attn: Accountin g,[address] [facility], [place], [address], [place] [facility] 7 10:54:13 Numbness of finger 877845067 Active 2016 Junior Millard MD Attn: Accountpj g,[address] [facility], [place], [address], [place] [facility] 7 10:57:37 Tubercul osis screenin g Active 2016 Junior Millard MD Attn: Accountin g,[address] [facility], [place], [address], [place] [facility] 7 10:59:18 Screenin g for malignan t neoplasm of breast Active 2016 Junior Millard MD Attn: Accountin g,[address] [facility], [place], [address], [place] [facility] 7 11:02:03 Acute bronchit is 38916469 Active 2016 Junior Millard MD Attn: Accountin g,[address] [facility], [place], [address], [place] [facility] 7 18:01:28 Cough 82146341 Active 2016 Junior Millard MD Attn: Accountpj g,[address] [facility], [place], [address], [place] [facility] 7 18:08:16 Problem Notes None recorded. Procedures Surgical History Date Name Laterality Status Provider Name and Address Organization Details Recorded Time Tonsillectomy completed Seth Gillespie [place] - [facility] 11/30/2014 11:40:39 Imaging Results Imaging Date Name Status LastModified by Organization Details LastModified Time 07/01/2018 XR, chest, 2 view completed [facility] (Imaging) [address] [place], [address], 07/10/2018 12:15:54 08/20/2018 event monitor completed [email or web address] [facility] [address], [place], [address], 10/21/2018 11:36:27 08/26/2018 trans-thoracic echocardiogram (TTE) (PROC) completed [address] [facility] [address], [place], [address], 10/21/2018 11:36:02 08/26/2018 cardiac stress test completed [address] [facility] [address], [place], [address], 10/21/2018 11:35:47 09/09/2018 home sleep study completed [address] [facility] [address], [place], [address], 10/21/2018 11:35:25 Procedure Notes None recorded. Medical Equipment None Reported. Allergies No known drug allergies Medications Name Sig Start Date Stop Date Status Note LastModified by Organization Details LastModified Time metformin 500 mg tablet TAKE 1 TABLET BY MOUTH TWICE A DAY WITH MORNING AND EVENING MEAL active Not Available Not Available No t Available azithromy monique 250 mg tablet TAKE 2 TABLETS (500 MG) BY ORAL ROUTE ONCE DAILY FOR 1 DAY THEN 1 TABLET (250 MG) BY ORAL ROUTE ONCE DAILY FOR 4 DAYS 11/04 completed Not Available Not Available Not Available ibuprofen 800 mg tablet Take 1 tablet 3 times a day by oral route with meals. 11/04 completed Not Available Not Available Not Available hydrocodo ne 5 mg-acetam inophen 325 mg tablet 02/17 completed Not Available Not Available Not Available Tubersol 5 tub. unit/0.1 mL intraderm al injection solution Take 0.1 mL by intrader mal route. 11/04 completed Not Available Not Available Not Available penicilli n V potassium 500 mg tablet 02/17 completed Not Available Not Available Not Available sulfameth oxazole 800 mg-trimet hoprim 160 mg tablet 11/04 completed Not Available Not Available Not Available omeprazol e 40 mg capsule,d elayed release active Not Available Not Available Not Available acetamino phen 500 mg tablet Take 2 tablets every 8 hours by oral route as needed. 11/04 completed Not Available Not Available Not Available ciclopiro x 8 % topical solution 11/04 completed Not Available Not Available Not Available benzonata te 100 mg capsule Take 1 capsule 3 times a day by oral route as needed. 11/04 completed Not Available Not Available Not Available paroxetin e 20 mg tablet TAKE 1 TABLET BY MOUTH EVERY DAY 2019 active Not Available Not Available Not Avai lable lisinopri l 10 mg tablet TAKE 1 TABLET BY MOUTH EVERY DAY active Not Available Not Available No t Available omeprazol e 20 mg capsule,d elayed release TAKE ONE CAPSULE BY MOUTH EVERY DAY active Not Available Not Available No t Available diclofena c sodium 75 mg tablet,de layed release 11/04 completed Not Available Not Available Not Available triamtere ne 75 mg-hydroc hlorothia zide 50 mg tablet TAKE ONE-HALF TABLET BY MOUTH ONCE DAILY active Not Available Not Available No t Available methylpre dnisolone 4 mg tablets in a dose pack Use as directed 11/04 completed Not Available Not Available Not Available fluticaso ne propionat e 50 mcg/actua tion nasal spray,garett pension Inhale 2 sprays every day by intranas al route. 11/04 completed Patient states it bothered her nasal area on left side Not Available Not Available Not Available loratadin e 10 mg tablet Take 1 tablet every day by oral route as needed. 11/04 completed Not Available Not Available Not Available Ventolin HFA 90 mcg/actua tion aerosol inhaler INHALE 2 PUFFS BY MOUTH FOUR TIMES DAILY 02/17 completed Not Available Not Available Not Available Fish Oil 02/17 completed states that her eye doctor recommen ded it d/t dry eyes. Takes otc Not Available Not Available Not Available multivita min active otc Not Available Not Available Not Available Probiotic active otc helps with digestio n per patient Not Available Not Available Not Available Lotemax 0.5 % eye gel drops 11/04 completed Not Available Not Available Not Available Prolensa 0.07 % eye drops 11/04 completed Not Available Not Available Not Available OneTouch Ultra Blue Test Strip USE DIRECTED TO TEST TWICE DAILY 2019 active Not Available Not Available Not Avai lable Vitals Date Recorded Body height Body mass index (BMI) Body weight Body temperature Oxygen saturation Oxygen saturation in Arterial blood by Pulse oximetry Heart rate Systolic blood pressure Diastolic blood pressure Provider Name and Address Organization Details Last Updated DateTime 8 167.64 cm 40.2 kg/m2 808794. 78 g 98 [degF] 96 % 96 % 71 /min 128 mm[Hg] 82 mm[Hg] India Watters [facility] 8 13:05:14 Date Recorded Body height Body mass index (BMI) Body weight Body temperature Heart rate Oxygen saturation Oxygen saturation in Arterial blood by Pulse oximetry Systolic blood pressure Diastolic blood pressure Provider Name and Address Organization Details Last Updated DateTime 9 167.64 cm 40.8 kg/m2 714505. 87 g 98.1 [degF] 88 /min 97 % 97 % 124 mm[Hg] 78 mm[Hg] India Watters MA [facility] 9 17:38:45 Date Recorded Body height Body mass index (BMI) Body weight Body temperature Heart rate Oxygen saturation Oxygen saturation in Arterial blood by Pulse oximetry Systolic blood pressure Diastolic blood pressure Provider Name and Address Organization Details Last Updated DateTime 9 167.64 cm 41.5 kg/m2 497114. 24 g 98.3 [degF] 112 /min 94 % 94 % 118 mm[Hg] 60 mm[Hg] India Watters [place] [facility] - [facility] 9 16:43:49 Date Recorded Body height Body mass index (BMI) Body weight Body temperature Heart rate Oxygen saturation Oxygen saturation in Arterial blood by Pulse oximetry Systolic blood pressure Diastolic blood pressure Provider Name and Address Organization Details Last Updated DateTime 9 167.64 cm 40.5 kg/m2 029646. 68 g 98.1 [degF] 71 /min 97 % 97 % 112 mm[Hg] 74 mm[Hg] India Watters MA [facility] 9 10:28:59 Date Recorded Body height Provider Name an d Address Organization Details Last Updated DateTime 02/18/2020 167.64 cm India Watters MA [facility] 0 10:38:11 Social History Question Answer Notes LastModified by Organizat ion Details LastModified Time Tobacco Smoking Status Never Smoker CORDELIA B[place], [place] [facility] 11/30/2014 11:40:39 What Is Your Level Of Alcohol Consumption? Occasional Information not available 11/30/2014 What Is Your Level Of Caffeine Consumption? Heavy Information not available 11/30/2014 What Was The Date Of Your Most Recent Tobacco Screening? 11/04/2018 Information n ot available 02/05/2019 Sex: Unknown Functional Status None recorded. Mental Status None recorded. Family History Relationship Description Onset Age of this Age Resolved Age Notes LastModified by Organization Details LastModified Time Mother Diabetes mellitus [email or web address] Not available 08/15 11:34:59 Mother Hypertensive disorder [email or web address] Not available 08/15 11:34:59 Mother Cerebrovascu lar accident [email or web address] Not available 0 08/24/2015 11:34:59 Maternal Grandmother Diabetes mellitus [email or web address] Not available 08/15 11:35:00 Maternal Grandfather Cerebrovascu lar accident [email or web address] Not available 0 08/24/2015 11:35:00 Medical History Condition Response Anxiety Disorder Y Diabetes Y Muscle, Joint, or Bone Problems Y Anemia Y High Blood Pressure Y Depression Y Asthma Y Allergies Y Gynecological HistoryNo gynecological history recorded. Obstetrics History GPAL:G 0 P 0 0 0 0 Immunizations Vaccine Type Date Status Note Provider Nam e and Address Organization Details Recorded Time COVID-19 vaccine, vector-nr, rS-Ad26, PF, 0.5 mL 1 completed Sara winslow, [place] - [facility] 01/27/2021 13:33:00 pneumococcal polysaccharide PPV23 7 completed Not Available [facility] 08/01/2019 02:33:02 Influenza, split virus, quadrivalent, preservative 9 completed Not Available [facility] 08/01/2019 02:45:26 Past Encounters Encounter ID Performer Location Encounter Start Date Encounter Closed Date Diagnosis/Indication Diagnosis SNOMED-CT Code Diagnosis ICD10 Code Diagnosis Note [id number] CODRELIA Baca (Adult Med) [address] [place] [address] 12730-488 0 11/30/2014 11:29:19 11/30/2014 13:11:46 Diabetes mellitus 71235087 Hypertensive disorder 13573893 Asthma [id number] MD Angelica Gerard (Adult Med) [address] [place] [address] [id number] 0 02/01/2015 11:10:50 02/01/2015 14:21:11 Diabetes mellitus 88512748 [id number] MADELINE Jeong (Adult Med) [address] [place] [address] [id number] 0 03/10/2015 11:25:22 03/10/2015 12:19:06 Diabetes mellitus 71508999 No insurance. Wants to do labs yearly Asthma 929821021 Essential hypertension 56918378 On examina tion - skin lesion [id number] Placido Paul Dominguez (Adult Med) [address] [place] [address] 38851-191 0 08/24/2015 11:20:43 08/24/2015 12:10:33 Diabetes mellitus 69959714 E11.40 No insurance. Wants to do labs yearly Essential hypertension 19477403 I10 Asthma 254875191 J45.90 9 Depressive disorder 3548 9007 F32.9 Allergic rhinitis 956228 04 J30.9 [id number] Tushar Dominguez (Adult Med) [address] [place] [address] [id number] 0 2015 10:59:47 2015 11:54:37 Essential hypertension 39524382 I10 Diabetes mellitus 831867 09 E11.40 No insurance. Wants to do labs yearly. Labs on return Asthma 913755576 J45.90 9 [id number] Darius Dominguez (Adult Med) [address] [place] [address] 72123-098 0 02/16/2016 09:54:47 02/16/2016 10:56:09 Essential hypertension 28717594 I10 Diabetes mellitus 978320 09 E11.40 No insurance. Wants to do labs yearly. Labs on return Asthma 571446591 J45.90 9 Pre-surger y evaluation 483784592 Z01.818 Cleared for surgery [id number] MD Angelica Gerard (Adult Med) [address] [place] [address] [id number] 0 06/11/2016 10:36:34 06/11/2016 12:42:34 Shoulder joint pain 570845549 M25.519 Essential hypertension 11350616 I10 Diabetes mellitus 449947 09 E11.40 No insurance. Wants to do labs yearly. Labs on return [id number] MD Angelica Gerard (Adult Med) [address] [place] [address] [id number] 0 09/10/2016 09:45:36 09/10/2016 11:19:40 Diabetes mellitus 40183514 E11.40 No insurance. Wants to do labs yearly. Labs on return Essential hypertension 54372938 I10 Asthma 760854980 J45.90 9 Shoulder joint pain 2679 82648 M25.519 Active immunization 3387 9002 Z23 Numbness of finger 53603 6001 R20.0 Tuberculos is screening 113323259 Z11.1 Screening for malignant neoplasm of breast 000388591 Z12.31 [id number] MD Angelica Gerard (Adult Med) [address] [place] [address] [id number] 0 04/18/2017 15:38:57 04/18/2017 18:10:00 Asthma 668672709 J45.909 Essential hypertension 41367786 I10 Acute bronchitis 9278494 2 J20.9 Cough 30387686 R05 [id number] MD Angelica Gerard (Adult Med) [address] [place] [address] [id number] 0 11/12/2017 12:07:21 11/12/2017 13:45:25 Indigestion 414884098 R10.13 Diabetes mellitus 098450 09 E11.40 Essential hypertension 45939292 I10 Bilateral tinnitus 10987 02616 102 H93.13 Depressive disorder 3548 9007 F32.9 [id number] MD Angelica Gerard (Adult Med) [address] [place] [address] [id number] 0 07/16/2018 16:45:59 07/16/2018 18:02:08 Essential hypertension 65822508 I10 Diabetes mellitus 019427 09 E11.40 Abnormal c ardiac conduction 61575436 I45.9 [id number] MD Angelica Gerard (Adult Med) [address] [place] [address] 49025-753 0 11/04/2018 16:26:49 11/04/2018 17:18:48 Abnormal cardiac conduction 20143480 I45.9 Asthma 779250721 J45.90 9 Essential hypertension 93815046 I10 Diabetes mellitus 050791 09 E11.40 Depressive disorder 3548 9007 F32.9 [id number] MD Angelica Gerard (Adult Med) [address] [place] [address] [id number] 05/06/2019 10:16:04 05/06/2019 11:05:57 Dysphasia 97543335 R47.02 Bilateral tinnitus 19768 88699 102 H93.13 Active immunization 3387 9002 Z23 Essential hypertension 00198002 I10 Allergic rhinitis 685843 04 J30.9 Diabetes mellitus 685732 09 E11.40 Incontinence 02698987 R3 2 [id number] MD Angelica Gerard (Adult Med) [address] [place] [address] 37123-199 0 02/18/2020 08:18:29 02/19/2020 11:06:10 Diabetes mellitus 53623179 E11.40 Essential hypertension 03720427 I10 Depressive disorder 3548 9007 F32.9 Indigestion 167598818 R1 0.13 Health Concerns Section Related Observation LastModified by Organization Detai ls LastModified Time None Recorded Concern Status LastModified by Organization Details LastModified Time None Recorded Advance Directives Directive None Recorded Payers Encounter Date Sequence Insurance Name Policy Number Policy Stanton Covered Member ID Stanton Member ID Guarantor Name 11/12/2017 1 [place] Ysabel Bell [id number] Ysabel Bell 11/12/2017 2 [employer] (MEDICARE SUPPLEMENT) Ysabel Gaudecnio Bell [id number] Ysabel Bell 07/16/2018 1 [place] Y[place]abel Bell [id number] Ysabel Bell 07/16/2018 2 [employer] (MEDICARE SUPPLEMENT) Ysabel K Bell [id number] Yasbel Bell 11/04/2018 1 [place] Y[place]abel Bell [id number] Ysabel Bell 11/04/2018 2 [employer] (MEDICARE SUPPLEMENT) Ysabel Bell [id number] Ysabel Bell 05/06/2019 1 [place] Ysabel Bell [id number] Ysabel Bell 05/06/2019 2 [employer] (MEDICARE SUPPLEMENT) Ysabel Bell [id number] Ysabel Bell 02/18/2020 2 [employer] (MEDICARE SUPPLEMENT) Ysabel Bell [id number] Ysabel Bell Notes Date Note Type Note Provider Name and Address Organization Details Recorded Time 11/12/2017 text/html Needs a PE. has pain in RUQ after meals. Intolerant to fatty foods. Wants her hearing tested due to decreased hearing and increased tinnitus Junior Millard MD Attn: [address] [place], [address], [facility] 11/12/2017 13:45:42 07/16/2018 text/html Seen in ER approximately two weeks ago for malaise and neck pain. Was told that one part of her heart was not working well. She was also treated for UTI. Feels better now. Some ankle edema Junior Millard MD Attn: [address] [place], [address], [facility] 07/16/2018 18:02:02 11/04/2018 text/html No new complaints Junior Millard MD Attn: [address] [place], [address], [facility] 11/04/2018 17:12:06 05/06/2019 text/html Lots of sinus drainage. Also having difficulty swallowing. Hearing has worsened. Bladder leakage worse Junior Millard MD Attn: [address] [place], [address], [facility] 05/06/2019 10:59:16 02/18/2020 text/html Telephone visit due to Covid-19 precautions. No complaints at present. Junior Millard MD Attn: [address] [place], [address], [place] [facility] 02/18/2020 12:11:58 OBGyn Episode No OBEpisode recorded.
--- OUTSIDE RECORDS SUMMARY | 2024-10-14 14:16 | XMS_ITS | Clinical Summary ---
Author Organization [facility] Address [address] [place] [address] Care Team Providers Care Program Manager Environmental Planning Name Role Phone Unavailable Primary Care Provider Unavailabl e Social History Tobacco Use Types Packs/Day Years Used Date Smoking Tobacco: Never Assessed Comments Unknown Sex and Gender Information Value Date Recorded Sex Assigned at Not on file Legal Sex Female 7:53 PM CDT Gender Identity Not on file Sexual Orientation Not on file Plan of Treatment Health Maintenance Due Date Last Done Comments Colorectal Cancer Screening Colonoscopy (10 Years) 1950 Hepatitis C 1968 DTaP, Tdap and Td Vaccines ( 1 - Tdap) 1969 Mammogram Screening 1990 Zoster Vaccines (1 of 2) 2000 Dexa Scan (General) 11/24/2015 Pneumococcal Vaccine: 65+ Ye ars (1 of 1 - PCV) 11/24/2015 COVID-19 Vaccine ( - 2023-2 5 season) 2024 Influenza Adult (#1) 2024 RSV Immunization or 60+ Years (1 - 1-dose 75+ series) 2025 Meningococcal B Vaccine Aged Out No l onger eligible based on patient's age to complete this topic Meningococcal Vaccine Aged Out No maggie chrissy eligible based on patient's age to complete this topic RSV Immunizations Under 20 Months Aged Out No longer eligible based on patient's age to complete this topic
--- OUTSIDE RECORDS SUMMARY | 2024-10-14 14:17 | XMS_ITS ---
Author Organization [facility] [employer] Address [address] [facility] [address] [place] [address] Care Team Providers Care Doll Wig Maker Name Role Phone Tobias Cerda MD Primary Care Provider Unavail able Phyllis Wharton Unavailable [phone] Karina More Unavailable [phone] REASON FOR VISIT Therapy Visit, I am doing a bit better Medications Medication SIG (Take, Route, Frequency, Duration) Notes Start Date End Date Status metFORMIN HCl 1000 MG Oral 11/07/2023 Active ProAir HFA 108 (90 Base) MCG/ACT Inhalation 11/07/2023 Active Atomoxetine HCl 40 MG 1 capsule in the morning Orally Once a day for 90 days generic thanks 10/07/2024 Active Venlafaxine HCl ER 150 MG 1 capsule Oral Once a day for 90 days 11/07/2023 Active Lisinopril 20 MG Oral 11/07/2023 Ac tive Omeprazole 40 MG Oral 11/07/2023 Ac tive Aspirin 81 81 MG 1 tablet Orally Once a day Active Social History Tobacco Use: Social History Observation Description Date Details (start date - stop date) Never Smoker NA - NA Sex Assigned At : Social History Observation Description Sex Assigned At Female Tobacco Control (Standard) Question Answer Notes Tobacco use: Nonsmoker Encounters Encounter Location Date Provider Diagnosis [facility] [address] [facility] [address] [place] [address] 08/24/2024 Karina Leonard Generalized anxiety disorder F41.1 ; Major depressive disorder, recurrent, moderate F33.1 and Attention-deficit hyperactivity disorder, combined type F90.2 Assessments Encounter Date Diagnosis (ICD Code) Assessment Notes Treatment Notes Treatment Clinical Notes Section Notes 08/24/2024 Generalized anxiety disorder (ICD-10 - F41.1) 08/24/2024 Major depressive disorder, recurrent, moderate (ICD-10 - F33.1) 08/24/2024 Attention-deficit hyperactivity disorder, combined type (ICD-10 - F90.2) 08/24/2024 Other Patient's Emotional Well-being and Coping Strategies - Assessment: Emotional distress related to family dynamics and stressors - Plan: - Encourage patient to continue attending therapy sessions to address emotional distress and develop healthy coping strategies, acknowledging her specific emotional triggers such as family conflicts and her role as a caregiver. - Recommend patient to consider joining a support group for family members of individuals with mental health disorders, to share experiences and gain support. - Provide resources for stress management and self-care techniques, including crafting as a therapeutic activity. Patient's Concern for Family Communication and Conflict Resolution - Assessment: Family conflict and communication difficulties - Plan: - Encourage patient to consider family therapy sessions to address communication issues and conflict resolution, particularly with her grandsons. - Provide resources for family therapy and communication skills training in the area, including workshops and counseling services. Each section addresses a specific concern of the patient and outlines a corresponding plan for support and intervention. Plan Of Treatment Next Appt Details Follow Up: 2 Weeks, Reason: Provider Name:Karina Leonard, 10/19/2024 11:00:00 AM, [address] [facility], [address], [address], Provider Name:Karina Leonard, 11/02/2024 10:00:00 AM, [address], [address], [address], Provider Name:Karina Leonard, 11/19/2024 11:00:00 AM, [address], [address], [address], Provider Name:Karina Leonard, 12/03/2024 11:00:00 AM, [address], [address], [address], Provider Name:Karina Leonard, 12/17/2024 11:00:00 AM, [address], [place] [address], [place], [address], Provider Name:Karina Leonard, 12/31/2024 10:00:00 AM, [address], [facility] [address], [place], [address], Provider Name:Phyllis blake, 12/31/2024 11:15:00 AM, [address], [facility] [address], [place], [address], Progress Notes * BELKYS MOORE KDOB:1950 (73 yo F)Acc No.[id number]:08/24/2024 Patient: BELKYS LINDSEY Provider: Jose LEONARD LCSW :1950 A ge:73 Y S ex:Female Date:08/24/2024 Address:[address] [place], [place] [id number] Pcp:Tobias Cerda MD Data: * Time Tracker: * Date Start Time End Time Duration User Type Captured By Mode Notes 08/24/2024 09:06 AM 10:00 AM 00:54:00 Therapist Rach More Manual * Chief Complaints: * 1 . Therapy Visit. 2. I am doing a bit better . * HPI: D epression Screening: Belkys reports concerns about her grandson Keshawn's mental health, noting his psychotic episodes that include paranoid ideation about being set up for murder. These episodes are often triggered by relationship issues or interactions. Keshawn has experienced multiple manic episodes, which are becoming more severe over time. He refuses medication and believes he can manage his symptoms without professional intervention, despite previously benefiting from therapy. When the patient suggested he might have bipolar disorder, Keshawn denied the possibility. The patient also discusses her other grandson, Jae, who exhibits symptoms consistent with autism spectrum disorder. Jae has difficulties with self- care, impulse control with eating, and maintaining his living space. He has communication challenges, with the patient reporting difficulty understanding his speech. Jae is described as non-functional in daily activities and struggles to focus on multiple tasks simultaneously. Regarding her own health, the patient reports experiencing emotional distress, manifesting as frequent crying episodes. She feels overwhelmed by the responsibility of supporting her grandsons. The patient mentions struggling with executive functioning and expresses a need to improve her diet, reduce stress, and enhance sleep quality to manage her arthritis symptoms in her feet. This note is transcribed using speech recognition software. While efforts have been made to correct errors, some inaccuracies may remain. PARUL-7 (2018 Edition) F eeling nervous, anxious, or on edge?Nearly every day, N ot being able to stop or control worrying M ore than half the days,?Worrying too much about different things M ore than hafl the days, T rouble relaxing More than half the days, B eing so restless that it is hard to sit still M ore than half the days, B ecoming easily annoyed or irritable N early every day, F eeling afraid as if something awful might happen S ever, T otal PARUL-7 Score 1 5, I f you checked any problems, how difficult have they made it for you to do your work, take care of things at home, or get along with other people? V ra difficult, I nterpretation of Total ( 15 and over) Severe. C [place]-Suicide Severity Rating Scale: Suicide Risk (CSRS-screener) i n the past one month Have you wished you were or wished you could go to sleep and not wake up? Y es, i n the past one month Have you actually had any thoughts of killing yourself? N o. D epression screening: PHQ-9 L ittle interest or pleasure in doing things N early every day, F eeling down, depressed, or hopeless M ore than half the days, T rouble falling or staying asleep, or sleeping too much M ore than half the days, F eeling tired or having little energy M ore than half the days, P oor appetite or overeating N ot at all,?Feeling bad about yourself or that you are a failure, or have let yourself or your family down Several days, T rouble concentrating on things, such as reading the newspaper or watching television S ever, M oving or speaking so slowly that other people could have noticed; or the opposite, being so fidgety or restless that you have been moving around a lot more than usual N ot at all, T houghts that you would be better off or of hurting yourself in some way N ot at all, T otal Score 1 1, I nterpretation M oderate Depression. * Behavioral History: P ast psychiatric Hospitalization:No. H istory of suicidal attempt?:No. * Family History: F ather: , Alcohol abuse . M aternal Uncle: Depressive disorder . U nspecified Relation: Grandson x2 Substance abuse (mj), ADHD, depression, anxiety, autism spectrum. All of my children and grandchildren are on the spectrum. . M other: , Anxiety disorder . M ateshival Grandmother: , Diabetes mellitus . B rother: Depressive disorder , Substance abuse . S ister: Family history of Suicide, Notes: around age 60 . S on: Depressive disorder .?Daughter: Depressive disorder . Belkys is the oldest of 7 children, born in [place] and moved to [place] at 7 years old. Two of her sisters are (cancer and suicide). 5 siblings are living. * Social History: T obacco Use: T obacco Control (Standard) T obacco use: N onsmoker. * Medications: T aking Aspirin 81 81 [...] 1 capsule Oral Once a day , Taking Atomoxetine HCl 40 MG Capsule 1 capsule in the morning Orally Once a day , stop date 10/07/2024, Notes to Pharmacist: generic thanks, Medication List reviewed and reconciled with the patient * Examination: G eneral Examination: M ental Status Examination: Patient expressed concerns about the mental health of family members, particularly highlighting a grandson's psychotic episodes and his resistance to medication. She also shared her emotional struggles, including frequent crying and the effort to control her emotions in front of her family. Demonstrated signs of significant emotional stress and possible depressive symptoms, as evidenced by tearfulness and reported difficulty in managing daily emotional and functional demands. Patient reported additional stressors related to her physical health, mentioning arthritis in her feet and challenges with weight management. Assessment: * Assessment: 1. Steve olivo depressive disorder, recurrent, moderate - F33.1 (Primary) 2 . G eneralized anxiety disorder - F41.1 3 . A ttention-deficit hyperactivity disorder, combined type - F90.2 Plan: * Behavioral Health Treatment Plan: I mported Date:08/24/2024 09:11 AM Imported By:Karina More herapy ServicesBarriersPoor Family supportCost: The cost of treatment is a barrierProblem/Goal/Objective/InterventionGroup1: Severe and Persistent Mental Illness 2eProblem 1:DepressionBehavioral DefinitionDemonstrates decreased energy level.Displays social withdrawal.Reports suicidal ideation, statements, gestures, or attempts.Verbalizes feelings of low self-esteem.GoalDevelop healthy cognitive patterns and beliefs about self and the world that lead to alleviation and help prevent the relapse of depression symptoms. Progress Start Date Target Date Assigned To Priority Statu s 0% 0 Open Objective* Verbally express an understanding of the relationship between a depressed mood and the repression of feelings (e.g., anger, hurt, and sadness). Progress Start Date Target Date Assigned To Status 0% Open * Learn and implement relapse prevention skills. Progress Start Date Target Date Assigned To Status 0% Open * Implement effective decision-making skills. Progress Start Date Target Date Assigned To Status 0% Open Intervention* Assist the client in developing an awareness of his/her automatic thoughts that reflect a depressogenic schema. Start Date Target Date Assigned To Status Open * Educate the client about the use and expected benefits of medication. Start Date Target Date Assigned To Status Open * Inquire about specific losses that severely and persistently mentally ill individuals experience (e.g., loss of independence, income, freedom, dignity or relationships) and how these losses may contribute to depression. Start Date Target Date Assigned To Status Open * Treatment: * Procedure Codes: 9 0837 PSYCHOTHERAPY W/PATIENT 60 MINUTES * Follow Up: 2 Weeks * Billing Information: * Visit Code: * Procedure Codes: 14787 PSYCHOTHERAPY W/PATIENT 60 MINUTES. * ASSISTANT Sign off status: Completed Signatures: No Ad Hoc Signature Added true * Provider: Jose LEONRAD LCSW Date: 0 08/24/2024 Generated for Karlene Millan on: 0 10/14/2024 02:17 PM CDT
--- OUTSIDE RECORDS SUMMARY | 2024-10-14 14:17 | XMS_ITS ---
Author Organization [facility] Address [address] [place] [address] Care Team Providers Care Distribution Operation Supervisor Name Role Phone Tobias Cerda MD Primary Care Provider Unavail able Phyllis Wharton Unavailable [phone] Karina More Unavailable [phone] Allergies Allergen (clinical drug ingredient) Drug/Non Drug Allergy documented on EMR Reaction Allergy Type Onset Date Status BEE VENOM PROTEIN (HONEY BEE) (uncoded) Unknown Allergy 11/21/2023 Active CONTACT METAL AGENT (uncoded) Unknown Allergy 11/21/2023 Active GRASS POLLEN (uncoded) Unknown Allergy 024 Active RAGWEED POLLEN (uncoded) Unknown Allergy 11/21/2023 Active Tree and shrub pollen TREE AND SHRUB ALEXANDRA STEFANO (uncoded) Unknown Allergy 11/21/2023 Active [place] pollen WEED POLLEN (uncoded) Unknown Allergy 2023 Active Watermelon Flavor Unknown Drug Allergy Active REASON FOR VISIT Therapy Visit, The kids are doing better so I am doing better Medications Medication SIG (Take, Route, Frequency, Duration) Notes Start Date End Date Status Omeprazole 40 MG Oral 11/07/2023 Ac tive Aspirin 81 81 MG 1 tablet Orally Once a day Active Atomoxetine HCl 40 MG 1 capsule in the morning Orally Once a day for 90 days generic thanks 10/07/2024 Not-Taking Venlafaxine HCl ER 150 MG 1 capsule Oral Once a day for 90 days 11/07/2023 Active Lisinopril 20 MG Oral 11/07/2023 Ac tive ProAir HFA 108 (90 Base) MCG/ACT Inhalation 11/07/2023 Active metFORMIN HCl 1000 MG Oral 11/07/2023 Active Social History Sex Assigned At : Social History Observation Description Sex Assigned At Female Encounters Encounter Location Date Provider Diagnosis [facility] [address] [place] [address] 09/09/2024 Karina Leonard Generalized anxiety disorder F41.1 ; Major depressive disorder, recurrent, moderate F33.1 and Attention-deficit hyperactivity disorder, combined type F90.2 Assessments Encounter Date Diagnosis (ICD Code) Assessment Notes Treatment Notes Treatment Clinical Notes Section Notes 09/09/2024 Generalized anxiety disorder (ICD-10 - F41.1) 09/09/2024 Major depressive disorder, recurrent, moderate (ICD-10 - F33.1) 09/09/2024 Attention-deficit hyperactivity disorder, combined type (ICD-10 - F90.2) 09/09/2024 Other Anxiety and Depression - Assessment: Patient reports experiencing anxiety and depression daily, but not for entire days. Worry is focused on natural, normal concerns such as family and grandchildren - Plan: - Continue monitoring symptoms and stressors. - Encourage patient to engage in self-care activities and stress management techniques. Family Stressors - Assessment: Patient reports multiple family stressors, including concerns for the safety and well-being grandchildren. Specific concerns include potential domestic issues and the need for niece Silvana to consider a women's prison. - Plan: - Encourage patient to maintain open communication with family members and offer support when appropriate. - Assist patient in exploring resources and options for niece Silvana, including potential women's prison placement. - Encourage patient to maintain boundaries and self-care while addressing family concerns. Plan Of Treatment Next Appt Details Follow Up: 2 Weeks, Reason: Provider Name:Karina Leonard, 10/19/2024 11:00:00 AM, [address], [facility] [address], [place], [address], Provider Name:Karina Leonard, 11/02/2024 10:00:00 AM, [address], [facility] [address], [place], [address], Provider Name:Karina Leonard, 11/19/2024 11:00:00 AM, [address], [facility] [address], [place], [address], Provider Name:Karina Leonard, 12/03/2024 11:00:00 AM, [address], [facility] [address], [place], [address], Provider Name:Karina Leonard, 12/17/2024 11:00:00 AM, [address], [address], [address], Provider Name:Karina Leonard, 12/31/2024 10:00:00 AM, [address], [address], [address], Provider Name:Phyllis blake, 12/31/2024 11:15:00 AM, [address] [facility] [address], [address], [address], Progress Notes * MOOREYSABEL KDOB:1950 (73 yo F)Acc No.[id number]:09/09/2024 Patient: YSABEL LINDSEY Provider: Jose LEONARD LCSW :1950 A ge:73 Y S ex:Female Date:09/09/2024 Address:[address] [place], [place] [id number] Pcp:Tobias Cerda MD Check In:08:08 AM CSTCheck O ut:09:04 AM POSTAL SERVICE CLERK Data: * Time Tracker: * Date Start Time End Time Duration User Type Captured By Mode Notes 09/09/2024 08:07 AM 09:05 AM 00:58:00 Therapist Rach More Manual * Chief Complaints: * 1 . Therapy Visit. 2. The kids are doing better so I am doing better . * HPI: D epression screening: Ysabel is completing tele visit from her own home in [place], in a cinfidential setting. Ysabel reports experiencing anxiety and depression, with parts of several days where she's not feeling good. She notes that she doesn't have any days completely free from anxiety or depression, but also doesn't have entire days that are completely down. The patient mentions worrying a lot, primarily about natural, normal things such as her grandchildren. The patient recently discontinued her ADHD medication, Atomoxetine, due to financial constraints. While the medication was beneficial in many ways, it also caused increased anger when stressed. Since discontinuing the medication, she feels she has returned to a more even emotional state. She is considering trying a different ADHD medication in a few months, noting that she may need to stay at a low dose. Ysabel shared concerns about her grand daughter that will need immediate action. Ysabel is planning to validate the information she heard about her adult grand daughter before take action. This note is transcribed using speech recognition software. It is an accurate representation of the visit with the patient. Efforts have been made to correct errors, but some inaccuracies may remain. PHQ-9 L ittle interest or pleasure in doing things M ore than half the days, F eeling down, depressed, or hopeless M ore than half the days, T rouble falling or staying asleep, or sleeping too much M ore than half the days, F eeling tired or having little energy M ore than half the days, P oor appetite or overeating N ot at all, F eeling bad about yourself or that you are a failure, or have let yourself or your family down N ot at all, T rouble concentrating on things, such as reading the newspaper or watching television N ot at all, M oving or speaking so slowly that other people could have noticed; or the opposite, being so fidgety or restless that you have been moving around a lot more than usual N ot at all, T houghts that you would be better off or of hurting yourself in some way N ot at all, T otal Score 8 , I nterpretation M ild Depression. I ntervention D epression Screening Findings P Marcello burnham ollow-Up for Depression M ental health treatment assessment, Patient follow-up to return when and if necessary, S uicide Risk Assessment Performed 0 09/09/2024 , A dditional Evaluation for Depression P sychiatric interview and evaluation, N jessica of the standardized tool used for adult depression screening: P atient Health Questionnaire (PHQ-9). D epression Screening: PARUL-7 (2018 Edition) F eeling nervous, anxious, or on edge?More than half the days, N ot being able to stop or control worrying M ore than half the days, W orrying too much about different things M ore than hafl the days, T rouble relaxing S everal days, B eing so restless that it is hard to sit still S everal days, B ecoming easily annoyed or irritable M ore than half the days, F eeling afraid as if something awful might happen M ore than half the days, T otal PARUL-7 Score 1 2, I nterpretation of Total ( 10 to 14) Moderate. * Behavioral History: P ast psychiatric Hospitalization:No. H istory of suicidal attempt?:No. * Medical History: P roblems: Attention deficit hyperactivity disorder, combined type, Generalized anxiety disorder, Moderate recurrent major depression, Obesity, Tremor, Benign essential hypertension, Type 2 diabetes mellitus without complications. * Family History: F ather: , Alcohol [...] the oldest of 7 children, born in [place] and [place] at 7 years old. Two of her sisters are (cancer and suicide). 5 siblings are living. * Medications: T aking Aspirin 81 81 [...] 1 capsule Oral Once a day , Not-Taking Atomoxetine HCl 40 MG Capsule 1 capsule [...] Allergy - Onset Date 11/21/2023, Watermelon Flavor. * Vitals: * Examination: G eneral Examination: M ental Status Examination: Patient exhibits signs of anxiety and depression, with no days free from these symptoms, though not experiencing full days of depression. Describes significant worry about natural and normal life events. Reports feelings of anger, particularly under stress, and difficulty adapting to situations. Assessment: * Assessment: 1. M ajor depressive disorder, recurrent, moderate - F33.1 (Primary) 2 . G eneralized anxiety disorder - F41.1 3 . A ttention-deficit hyperactivity disorder, combined type - F90.2 Plan: * Behavioral Health Treatment Plan: I mported Date:09/09/2024 08:35 AM Imported By:Karina More herapy ServicesBarriersPoor Family [...] Open * Treatment: * Procedure Codes: 9 6127 BEHAV ASSMT W/SCORE & DOCD/STAND INSTRUMENT, G8431 CLIN DEPRESSION SCREEN DOC, [address]256 PSYCHOTHERAPY W/PATIENT 60 MINUTES, Modifiers: 95 * Follow Up: 2 Weeks * Billing Information: * Visit Code: * Procedure Codes: 08521 BEHAV ASSMT W/SCORE & DOCD/STAND INSTRUMENT. G8431 CLIN DEPRESSION SCREEN DOC. [address]657 PSYCHOTHERAPY W/PATIENT 60 MINUTES. Modifiers: 95 * AL SERVICE CLERK Sign off status: Completed Signatures: No Ad Hoc Signature Added true * Provider: Jose LEONARD LCSW Date: 0 09/09/2024 Generated for Karlene lou/[place] on: 0 10/14/2024 02:16 PM CDT
--- OUTSIDE RECORDS SUMMARY | 2024-10-14 14:17 | XMS_ITS | Continuity of Care Document ---
Author Organization [facility] Address [address] [place] [address] [address] [place] [address] Phone Care Team Providers Care Territory Manager General Sales Name Role Phone Berna Jerome Unavailable Unavailable Procedures Procedure Date Eye Exam Established Pt Advance Directives Directive Yes / No Effective Date File Name No Information Encounters Encounter Description Practice Location Reason(s) For Visit Diagnoses Date Provider Providers Copied on Encounter [facility], [address] [place] [address] [address], [place], [place], [id number], [place] tel:[phone] [facility] No Information [address]. [address] [facility] , [address], [place], [address], [place]. tel:[phone] Family History Family Member Type Diagnosis Age At Onset No Information Payers Payer name Insurance type Covered alliance party ID Authoriza tion(s) No Information Social History Type Description Quantity Date Captured Comments Sex Female Smoking Status No Information Chief Complaint And Reason For Visit No Information Reason For Referral Reason For Referral No Information History Of Present Illness Encounter Date Complaint History Of Prese nt Illness No Information Functional Status Date Functional Assessmen t No Information Instructions Date Instruction Additional Infor mation No Information Assessments Type Assessment Date No Information Patient Care Teams Name Effective Dates (start - stop) Status Members No Information
== END 2024-10-14 12:58 | disposition home or self-care (01) ==
PROVIDERS: PCP Emergency Medicine; Visit Provider Obstetrics & Gynecology
DX: N95.0 Postmenopausal bleeding (principal)
CPT/HCPCS: 76830; 76856

== ENCOUNTER 2025-04-19 12:20 | Outpatient (CLI) | payer MEDICARE, SELFPAY ==
--- NOTE | ~2025-04-19 | XR_ITS ---
Examination: XR knee RT 3V Clinical History: M25.561 - Pain in right knee lateral aspect x 1month Comparison: None Technique: 3 views right knee Findings/impression: 1. No fracture, dislocation, or effusion right knee. 2. Mild medial compartment joint space narrowing. 3. Moderate patellofemoral compartment joint space narrowing, with lateral patellar subluxation, and patellar articular surface marginal osteophytes. Reviewed, dictated and finalized at location R.
--- OUTSIDE RECORDS SUMMARY | 2025-04-19 13:20 | XMS_ITS | Clinical Summary ---
Author Organization [facility] Address [address] [place] [address] Care Team Providers Care Data Entry Clerk Name Role Phone Tobias Cerda MD Primary Care Provider + [phone] Allergies Active Allergy Reactions Criticality Noted Date Comments [place] Extract Contact Dermatitis 03/04/2025 Medications metFORMIN (GLUCOPHAGE) 1000 MG tablet Take 1 tablet (1,000 mg total) by mouth 2 (two) times daily with meals. Active aspirin EC 81 MG tablet Take 1 tablet (81 mg total) by mouth daily. Active oxybutynin (DITROPAN) 5 MG tablet Take 1 tablet (5 mg total) by mouth 2 (two) times daily. Active lisinopril (PRINIVIL) 20 MG tablet Take 1 tablet (20 mg total) by mouth daily. Active omeprazole (PRILOSEC) 40 MG capsule Take 1 capsule (40 mg total) by mouth daily. Active loratadine (CLARITIN) 10 MG tablet Take 1 tablet (10 mg total) by mouth nightly. Active venlafaxine XR (EFFEXOR-XR) 150 MG 24 hr capsule Take 1 capsule (150 mg total) by mouth daily. Active Flaxseed, Linseed, (FLAX SEEDS OR) Take 1 tablet by mouth daily. Active Encounters Date Type Department Care Team Description 03/10/2025 9:08 AM CDT Anesthesia [place] [address] LópezRamos valdovinos MD Jarvis, Brittany L, CNP 03/10/2025 8:40 AM CDT - 03/10/2025 9:50 AM CDT Surgery [facility] [place] [place] [address] Akhil Mcbride MD HYSTEROSCOPY, DILATION AND CURETTAGE, WITH POLYPECTOMY, MYOSURE 03/10/2025 6:49 AM CDT - 03/10/2025 11:57 AM CDT Hospital Encounter [facility] [place] [address] Akhil Mcbride MD Discharge Disposition: Home or Self Care (Routine Discharge) 03/10/2025 Travel 03/04/2025 Travel from Last 3 Months Social History Tobacco Use Types Packs/Day Years Used Date Smoking Tobacco: Never Smokeless Tobacco: Never Tobacco Cessation:Counseling Given: Not Answered Alcohol Use Standard Drinks/Week Comments Not Currently 0 (1 standard drink = 0.6 oz pur e alcohol) social Comments No Sex and Gender Information Value Date Recorded Sex Assigned at Female 03/10/2025 6:42 AM CDT Legal Sex Female 7:53 PM CDT Gender Identity Not on file Sexual Orientation Not on file Last Filed Vital Signs Vital Sign Reading Time Taken Comments Blood Pressure 176/88 03/10/2025 11:46 AM CDT patient stated she will take her blood pressure medication when she gets into the car (where her meds are) Pulse 80 03/10/2025 11:46 AM CDT Temperature 36.7 C (98 F) 03/10/2025 11:46 AM CDT Respiratory Rate 20 03/10/2025 11:4 6 AM CDT Oxygen Saturation 97% 03/10/2025 11: 46 AM CDT Inhaled Oxygen Concentration - - Weight 108.5 kg (239 lb 3.2 oz) 03/10/2025 7:18 AM CDT Height 165.1 cm (5' 5) 03/10/2025 7:18 AM CDT Body Mass Index 39.8 03/10/2025 7:18 AM CDT Plan of Treatment Health Maintenance Due Date Last Done Comments Colorectal Cancer Screening Colonoscopy (10 Years) 1950 Hepatitis C 1968 Mammogram Screening 1990 Zoster Vaccines (2 of 3) 08/01/2015 06/06/2015 Annual Medicare Wellness Visit 11/24/2015 Dexa Scan (General) 11/24/2015 Pneumococcal Vaccine: 50+ Years (2 of 2 - PCV) 09/10/2017 09/10/2016 COVID-19 Vaccine (3 - 2024-2 6 season) 2025 02/16/2022, 09/16/2020 Influenza Adult (#1) 2025 05/06/2019 DTaP, Tdap and Td Vaccines ( 2 - Td or Tdap) 06/06/2025 06/06/2015 RSV Immunization or 60+ Years (1 - 1-dose 75+ series) 2025 Meningococcal B Vaccine Aged Out No l onger eligible based on patient's age to complete this topic Meningococcal Vaccine Aged Out No maggie chrissy eligible based on patient's age to complete this topic RSV Immunizations Under 20 Months Aged Out No longer eligible b ased on patient's age to complete this topic Procedures Procedure Name Priority Date/Time Associated Diagnosis Comments PROCEDURE GENERIC 03/10/2025 10: 52 AM CDT POCT GLUCOSE - DOCKED DEVICE Routine 03/10/2025 10:36 AM CDT HYSTEROSCOPY BX ENDOMETRIUM&/POLYPC W/WO D&C 03/10/2025 9:08 AM CDT POSTMENOPAUSAL BLEEDING, POLYP OF CERVIX N95.0, N 84.1 Case Notes SCHED WITH XOCHITL ON 02/12/25 JL PHONE ASSESS POCT GLUCOSE - DOCKED DEVICE Routine 03/10/2025 7:26 AM CDT PATHOLOGY Routine 03/10/2025 12:00 AM CDT from Last 3 Months Results * PROCEDURE GENERIC (03/10/2025 10:52 AM CDT) Akhil Mcbride MD [facility] Final Result * (ABNORMAL) POCT glucose (03/10/2025 10:36 AM CDT) Only the most recent of2 resultswithin the time period is included. GLUCOSE POC 123(H) 70 - 99 mg/dL 03/10/2025 10:49 AM CDT [facility] 03/10/2025 10:3 6 AM CDT us Akhil Mcbride MD POCT ORDERABLES - DEVICE Final Result [facility] [address] [id number], * Pathology (03/10/2025 12:00 AM CDT) PATHOLOGY [facility] Department of Laboratory Medicine [address] [place] [phone] , extension [id number] Pathology Report Addendum Surgical Pathology Report Name: BELKYS BELL Specimen #: [id number] Age: 5 1950 (Age: 74) Location: [facility] Sex: F Procedure Date: 03/10/2025 Hospital #: [id number] Date Received: 03/10/2025 Date Reported: /05/2025 Provider: AKHIL MCBRIDE MD Source: A: Endometrium, polyp B: Endometrium, curettage Clinical History: Postmenopausal bleeding and polyp of cervix FINAL DIAGNOSIS: A. Endometrial polyp, polypectomy: -Pending external consultation; see comment B. Endometrium, curettage: -Pending external consultation; see comment Diagnosis Comment: This case is sent for external consultation and the service delivery consultant's interpretation will be issued in an addendum. Gross Description: A. Received in formalin, labeled with a patient label and as endometrial polyps, is a 6.3 x 4.0 x 1.4 cm aggregate of pink-smith soft tissue fragments. The specimen is entirely submitted in cassettes A1-A8. B. Received in formalin, labeled with a patient label and as endometrium curettings, is a 2.8 x 1.6 x 0.5 cm aggregate of pink-smith soft tissue fragments with red-brown clot material. The specimen is entirely submitted in cassette B1. Gross examination (when applicable) was performed at [facility], [address] [place] [address]. This case was interpreted and signed out at [facility], [address] [place] [address]. Electronically Signed Out TERI LIRA MD Addenda/Procedures Addendum Date Ordered: 03/25/2025 Status: Signed Out Date Complete: 03/25/2025 By: TERI HERNADEZ Date Reported: 03/25/2025 Addendum Diagnosis A, B. Endometrium, polypectomy and curettage: -Endometrioid adenocarcinoma, provisional FIGO grade 2 Addendum Comment This case was sent for external consultation to [facility] and interpreted by Dr. Mer Jacobsen MD with the service delivery consultant's impression in the addendum diagnosis field. MMR immunohistochemical stains show lack of staining for MLH1 and PMS2 and retained staining for MSH2 and MSH6. 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 See external report for details (media tab in Epic). This addendum was interpreted and signed out at [facility], [address] [place] [address]. [facility] TISSUE ENDOMETRIAL STRUCTURE / Unknown 03/10/2025 9:34 AM CDT us Akhil Mcbride MD PATHOLOGY/CYTOLOGY ORDERABLES Final Result [facility] [address] [place] [address], [id number] from Last 3 Months Insurance MEDICARE Care Teams Data Entry Clerk Relationship Specialty Start Date End Date Tobias Cerda MD [address] [place] [address] PCP - General INTERNAL MEDICINE 03/10/25
== END 2025-04-19 12:21 | disposition home or self-care (01) ==
PROVIDERS: PCP Emergency Medicine; Visit Provider Emergency Medicine
DX: M17.11 Unilateral primary osteoarthritis, right knee (principal)
CPT/HCPCS: 73562

== ENCOUNTER 2025-05-08 04:47 | Emergency (ER) | payer MEDICARE, SELFPAY ==
[2025-05-08] VITALS (8 sets, daily range): BP systolic 128–159; BP diastolic 60–79; PULSE 83–97; RESP 16–20; TEMP 36.4–36.7; O2SAT 98–100
[2025-05-08 06:41] LABS: Hematocrit 29.0 % (37.0-47.0); Hemoglobin 8.4 g/dL (12.0-15.0); Immature Granulocyte Percent A 0.4 % (0-0.5); Lymphocytes Absolute Auto 2.04 K/mm3 (0.9-3.2); Mean Corpuscular HGB Conc 29.0 g/dl (32-36); Mean Corpuscular Hemoglobin 21.2 pg (26-34); Mean Corpuscular Volume 73.0 fl (80-100); Nucleated Red Blood Cells Absolute Auto 0.000 K/mm3 (0.0-0.012); Nucleated Red Blood Cells Perc 0.0 % (0.0-0.2); Platelet Count Result 314 k/mm3 (150-375); Red Blood Count 3.97 M/mm3 (4.2-5.4); White Blood Count 9.4 K/mm3 (4.5-10.0)
[2025-05-08 06:45] LABS: Add Urine Microscopic? YES; Appearance Urine Clear (Clear); Glucose Urine UA Negative (Negative); Leukocyte Esterase Ur 1+ LEU/UL (Negative); Nitrate Urine Negative (Negative); Non Pathogenic Casts 0-2; Specific Grav Ur 1.025 (1.001-1.035)
--- NOTE | 2025-05-08 06:45 | ED.FEMALEGU ---
HPI - Female Genitourinary General Chief complaint: Vaginal Bleeding Stated complaint: vaginal bleeding and clots-uterine cancer Time Seen by Provider: 05/08/25 06:02 Source: patient and family Mode of arrival: ambulatory Limitations: no limitations History of Present Illness HPI Narrative: This is a 74-year-old female with history of hyperlipidemia hypertension, diabetes, GERD who presents to the ED for vaginal bleeding. Patient states that she is currently undergoing evaluation for possible endometrial cancer. She has been having intermittent bleeding for the past month or so. She states that last night she passed a clot approximately the size of her fist with a gush of blood immediately after that. She put a pad on after this that is only had spotting since then. She has had some lightheadedness. Denies chest pain, shortness of breath, abdominal pain. Related Data Home Medications ?Medication ?Instructions ?Recorded ?Confirmed ?Last Taken ?Type aspirin 81 mg chewable tablet 81 mg PO DAILY 05/23/20 11/24/24 Unknown History loratadine 10 mg tablet (Claritin) 10 mg PO DAILY 10/15/22 11/24/24 Unknown History flaxseed oil 1,000 mg capsule 1,000 mg PO DAILY 11/24/24 11/24/24 Unknown History oxybutynin chloride 5 mg tablet 5 mg PO BID 04/19/25 Unknown History Allergies Allergy/AdvReac Type Severity Reaction Status Date / Time cucumber Allergy Intermediate Difficulty Verified 05/08/25 05:47 Breathing petroleum Allergy Intermediate shortness Uncoded 04/19/25 11:35 of breath Review of Systems Review of Systems: Gen.: Denies fevers or chills Eyes: Denies eye pain or visual change ENT: Denies congestion Respiratory: Denies shortness of breath or cough CV: Denies chest pain or palpitations GI: Denies abdominal pain nausea, emesis or diarrhea denies burning, urgency, frequency or hematuria Musculoskeletal: Denies back pain or muscle pain Neuro: Denies numbness, tingling, weakness or focal weakness Skin: Denies rash Except as documented, all other systems reviewed and negative [facility] Past Medical History Medical History (Updated 05/08/25 @ 07:26 by Henok Ledezma MD) Uterine cancer UTI (urinary tract infection) Mid January 2024 Postmenopausal Incontinence History of sinus problem Bilateral tinnitus Insomnia Nervousness Dizziness Bleeding gums Hay fever Suicidal thoughts Pneumonia Mumps Migraine headache Chicken pox Cataracts, both eyes Bronchitis Arthritis Morbid obesity Diabetes 1.5, managed as type 2 Asthma GERD with apnea HTN (hypertension) Surgical History Surgical History (Updated 04/19/25 @ 11:53 by Samantha Palma MA) History of hysterectomy (~03/10/25) Hx of cataract removal with insertion of prosthetic lens (~2015) Family History Family History Mother Depression Hypertension Cerebrovascular accident, Onset Age: 64 Family history of diabetes mellitus in first degree relative Patient's mother is Father Family history of alcoholism Family history of emphysema, Onset Age: 49 Patient's father is Sibling Family history of lung cancer Patient's sister is Social History Social History (Updated 04/19/25 @ 11:59 by Samantha Palma MA) Social History: Patient drinks 14 ounces of coffee daily. No other caffeine intake noted. Smoking status: Never smoker Alcohol intake: current Alcohol use details: occasionally Substance use: never Substance use type: does not use Do You Feel Safe in your Home?: Yes Lack of Transportation: No Lack of Food: Sometimes True Current Housing: Decline to Answer Concerned About Future Housing: Decline to Answer Difficulty Paying Gas/Electric Bills: Decline to Answer Difficulty Paying for Meds: Decline to Answer Currently Unemployed: Decline to Answer Education: Decline to Answer Difficulty w/ Childcare or Family Care: Decline to Answer Gender identity (if verbalized by the patient): Female Exam Narrative: APPEARANCE: No acute distress, nontoxic, resting in bed EYES: EOMI HEENT: Normocephalic, atraumatic, OMM RESPIRATORY: No respiratory distress Clear to auscultation bilaterally with no rhonchi wheezing or rales. CARDIOVASCULAR: Regular rate and rhythm without murmurs rubs or gallops. ABDOMINAL: Soft, nontender, nondistended, no rebound or guarding : Communications Writer present. Blood within the vaginal vault. No lacerations noted. MUSCULOSKELETAl: Moves all extremities. No clubbing, cyanosis or edema. NEURO: Awake and alert. Following commands, speech normal, no focal deficits SKIN:: Warm, dry. No rashes lesions or abrasions PSYCHIATRIC: Normal affect/mood, Course Vital Signs Vital signs: Vital Signs Blood Pressure 136/65 05/08/25 05:00 Pulse Oximetry 100 05/08/25 05:00 Temperature 97.5 F L 05/08/25 08:11 Pulse Rate 83 05/08/25 08:11 Respiratory Rate 16 05/08/25 08:11 Blood Pressure 159/63 H 05/08/25 08:11 Pulse Oximetry 99 05/08/25 08:11 Oxygen Delivery Room Air 05/08/25 05:02 MDM - Female Genitourinary MDM Narrative Medical decision making narrative: 74-year-old female with recent diagnosis of uterine cancer presenting for vaginal bleeding. On initial evaluation patient was in no acute distress, afebrile and hemodynamically stable. Abdomen was soft nontender. Her lungs are clear. Pelvic exam was performed and did reveal blood in the vaginal vault with no appreciable lacerations. Patient's hemoglobin did drop to 84 from last known hemoglobin 11.1 in 02/18/2024. Unclear how much blood she may have lost acutely. She is otherwise asymptomatic at this time. Patient deemed appropriate for discharge at this time. She is advised to call her Gyne Onc on Saturday to determine surgical plans. She was also scheduled for repeat hemoglobin on Saturday. Patient and family were agreeable to this plan. Given strict return precautions. Differential Diagnosis Differential diagnosis: Likely urinary tract infection and other (Laceration, abnormal uterine bleeding, anemia, electrolyte abnormality) Medical Records Attestation: I reviewed the patient's medical records. Lab Data Attestation: I reviewed the patient's lab results. 05/08/25 06:32 05/08/25 06:32 Labs: Lab Results 05/08/25 Range/Units 06:32 WBC 9.4 (4.5-10.0) K/mm3 RBC 3.97 L (4.2-5.4) M/mm3 Hgb 8.4 L (12.0-15.0) g/dL Hct 29.0 L (37.0-47.0) % MCV 73.0 L (80-100) fl MCH 21.2 L (26-34) pg MCHC 29.0 L (32-36) g/dl RDW 17.1 H (11.5-14.5) % Plt Count 314 (150-375) k/mm3 MPV 9.5 (7.4-10.4) fl Immature Gran % (Auto) 0.4 (0-0.5) % Neut % (Auto) 64.4 (45.5-73.1) % Lymph % (Auto) 21.7 (18.3-44.2) % [place] % (Auto) 9.6 H (2.6-8.5) % Eos % (Auto) 3.2 (0-4.4) % Baso % (Auto) 0.7 (0.2-1.2) % Lymph # (Auto) 2.04 (0.9-3.2) K/mm3 [place] # (Auto) 0.9 H (0.1-0.6) K/mm3 Eos # (Auto) 0.3 (0-0.3) K/mm3 Baso # (Auto) 0.1 (0.0-0.1) K/mm3 Abs Immat Gran (auto) 0.04 H (0.00-0.031) K/mm3 Absolute Neuts (auto) 6.0 (1.3-6.7) K/mm3 Absolute Nucleated RBC 0.000 (0.0-0.012) K/mm3 Band Neutrophils % Not Reportable Nucleated RBC % 0.0 (0.0-0.2) % Platelet Estimate Adequate (Adequate) Hypochromasia 1+ Anisocytosis 1+ Microcytosis 1+ (NORMAL) Schistocytes None seen Sodium 136 L (137-145) mmol/L Potassium 4.1 (3.4-5.0) mmol/L Chloride 102 (98-107) mmol/L Carbon Dioxide 26 (22-30) mmol/L Anion Gap 8 (4-12) mmol/L BUN 21 H (7-17) mg/dL Creatinine 0.65 L (0.7-1.0) mg/dL Estim Creat Clear Calc 79 ml/min Estimated GFR > 60 (59 - ) Glucose 158 H (65-110) mg/dL Calcium 8.6 (8.4-10.2) mg/dL Total Bilirubin 0.2 (0.2-1.3) mg/dL AST 20 (14-36) U/L ALT 20 (6-35) U/L Alkaline Phosphatase 83 (38-126) U/L Total Protein 6.6 (6.3-8.2) g/dL Albumin 3.8 (3.5-5.1) g/dL Urine Color Yellow (Yellow) Urine Appearance Clear (Clear) Urine pH 5.5 (5.0-9.0) Ur Specific [place] 1.025 (1.001-1.035) Urine Protein Trace (Negative) mg/dL Urine Glucose (UA) Negative (Negative) mg/dL Urine Ketones Trace H (Negative) mg/dL Ur Blood (Man) 2+ H (Negative) Urine Nitrate Negative (Negative) Urine Bilirubin Negative (Negative) Urine Urobilinogen 1.0 (<2.0) mg/dL Leukocyte Esterase Rfl 1+ H (Negative) GEORGE/UL Urine RBC >100 H (0-2) /hpf Urine WBC 11-20 H (0-3) /hpf Ur Squamous Epith Cells None seen (Few) /hpf Urine Bacteria None seen /hpf Urine Casts 0-2 Blood Type A Positive Antibody Screen Negative Discharge Plan Discharge Clinical Impression: Abnormal uterine and vaginal bleeding, unspecified Anemia Qualifiers: Anemia type: unspecified type Qualified Code(s): D64.9 - Anemia, unspecified Patient Disposition: Home Condition: Stable Instructions: Antibiotic Form, Abnormal (Dysfunctional) Uterine Bleeding (ED) Additional Instructions: Please follow-up with the surgeon on Saturday to discuss further intervention. Have your blood drawn on Saturday to recheck her hemoglobin. Return to the ED for any new or worsening symptoms. Patient Language: Pakistani Prescriptions: No Action aspirin 81 mg tablet,chewable 81 mg PO DAILY venlafaxine 150 mg capsule,extended release 24hr 150 mg PO DAILY Qty: 90 0RF loratadine [Claritin] 10 mg tablet 10 mg PO DAILY albuterol sulfate [Ventolin HFA] 90 mcg/actuation HFA aerosol inhaler See Rx Instructions .ROUTE .COMPLEX Qty: 25.5 3RF Rx Instructions: inhale 1 puff po daily prn; flaxseed oil 1,000 mg capsule 1,000 mg PO DAILY Rx Instructions: administer with a meal naproxen 500 mg tablet 500 mg PO BID Qty: 14 0RF oxybutynin chloride 5 mg tablet 5 mg PO BID (DME) blood-glucose meter [OneTouch Ultra2 Meter] Kit See Rx Instructions .Route Qty: 1 0RF Rx Instructions: As directed (DME) OneTouch Ultra Test Strip See Rx Instructions .Route Qty: 100 3RF Rx Instructions: Test daily as directed metformin 1,000 mg tablet See Rx Instructions .ROUTE .COMPLEX Qty: 180 2RF Dose Instruction: TAKE 1 TABLET BY MOUTH TWICE A DAY Rx Instructions: TAKE 1 TABLET BY MOUTH TWICE A DAY lisinopril 20 mg tablet See Rx Instructions .ROUTE .COMPLEX Qty: 90 2RF Dose Instruction: TAKE 1 TABLET BY MOUTH EVERY DAY Rx Instructions: TAKE 1 TABLET BY MOUTH EVERY DAY omeprazole 40 mg capsule,delayed release(DR/EC) See Rx Instructions .ROUTE .COMPLEX Qty: 90 2RF Dose Instruction: TAKE 1 CAPSULE BY MOUTH DAILY Rx Instructions: TAKE 1 CAPSULE BY MOUTH DAILY Other Ambulatory Orders: Hemoglobin (Hgb) Solubility (Routine) Timeframe: 2 Days Location: Determined by Patient Ordered By: Henok Ledezma Follow-up/Referrals: Tobias Cerda MD [Primary Care Provider, Internal Medicine]
[2025-05-08 06:59] LABS: Alanine Aminotransferase 20 U/L (6-35); Albumin Level 3.8 g/dL (3.5-5.1); Alkaline Phosphatase 83 U/L (38-126); Anion Gap 8 mmol/L (4-12); Aspartate Amino Transferase 20 U/L (14-36); Bilirubin,Total 0.2 mg/dL (0.2-1.3); Blood Urea Nitrogen 21 mg/dL (7-17); Calcium 8.6 mg/dL (8.4-10.2); Carbon Dioxide 26 mmol/L (22-30); Chloride 102 mmol/L (98-107); Estimated CRCL calculation 79 ml/min; Estimated Glomerular Filt Rate > 60; Glucose 158 mg/dL (65-110); Potassium 4.1 mmol/L (3.4-5.0); Sodium 136 mmol/L (137-145); Total Protein 6.6 g/dL (6.3-8.2)
[2025-05-08 07:21] LABS: Anisocytosis 1+; Hypochromasia 1+; Microcytosis 1+ (NORMAL); Schistocytes None Seen
== END 2025-05-08 08:13 | disposition home or self-care (01) ==
PROVIDERS: Emergency Provider Student in an Organized Health Care Education/Training Program; PCP Emergency Medicine
DX: N93.9 Abnormal uterine and vaginal bleeding, unspecified (principal); D64.9 Anemia, unspecified; E78.5 Hyperlipidemia, unspecified; I10 Essential (primary) hypertension; E11.9 Type 2 diabetes mellitus without complications; K21.9 Gastro-esophageal reflux disease without esophagitis
CPT/HCPCS: 36415; 80053; 81001; 85025; 86850; 86900; 86901; 87086; 99283